=== PATIENT | male | born 1965 | race Two or more races ===

== ENCOUNTER 2022-12-16 11:17 | Inpatient (IN) | payer OTHER ==
[~2022-12-16] VITALS: Ht 157.5 cm; Wt 41.9 kg
[2022-12-16 12:07] LABS: Eosinophils # (auto) 0.1 10 ^3/uL (0-0.8); Hematocrit 37.5 % (41.0-53.0); Hemoglobin 12.2 g/dL (13.5-17.5); Mean Corpuscular Hgb Conc. 32.5 g/dL (32.0-36.0); Neutrophils # (auto) 6.5 10 ^3/uL (1.6-8.6); White Blood Cell 8.4 10^3/uL (4.4-10.8)
[2022-12-16 12:10] LABS: Basophils # (auto) 0.1 10 ^3/uL (0-0.2); Basophils % (auto) 0.7 % (0.0-2.0); Eosinophils % (auto) 1.1 % (0.0-7.0); Lymphocytes # (auto) 1.2 10 ^3/uL (0.4-5.4); Lymphocytes % (auto) 14.8 % (10.0-50.0); Mean Corpuscular Hemoglobin 26.1 pg (28.0-32.0); Mean Corpuscular Volume 80.2 fL (80.0-100.0); Monocytes # (auto) 0.5 10 ^3/uL (0-1.3); Monocytes % (auto) 6.3 % (0.0-12.0); Neutrophils % (auto) 77.1 % (37.0-80.0); Red Blood Cells 4.67 10^6/uL (4.5-5.90); Red Cell Distribution Width 14.9 % (11.8-14.3)
[2022-12-16 12:30] LABS: Alanine Aminotransferase 15 U/L (7-40); Alkaline Phosphatase 113 U/L (46-116); Anion Gap 7.1 (5-15); Aspartate Aminotransferase 11 U/L (13-40); BUN/Creatinine Ratio 27.7 (10.0-20.0); Blood Urea Nitrogen 26 mg/dL (9-23); Calcium 9.1 mg/dL (8.5-10.1); Carbon Dioxide 28.9 mmol/L (20-30); Chloride 105 mmol/L (98-107); Glucose 156 mg/dL (74-106); Potassium 4.3 mmol/L (3.5-5.1); Sodium 141 mmol/L (136-145)
[2022-12-16 12:31] LABS: Albumin 4.1 g/dL (3.2-4.8); Bilirubin, Total 0.4 mg/dL (0.2-1.0); Total Protein 6.6 g/dL (5.7-8.2)
[2022-12-16 12:39] LABS: CRP High Sensitivity 0.96 mg/dL (<1.0)
[2022-12-16 13:48] LABS: Erythrocyte Sedimentation Rate 55 mm/hr (0-20)
[2022-12-16] MEDS ORDERED: IOHEXOL 300 MG/ML 100ML BOTTLE IJ ONE (15:13)
[2022-12-16] MEDS ORDERED: PIPERACILLIN-TAZOB 3.375GM 100 ML IV ONE (15:15)
[2022-12-16] MEDS ORDERED: NITROGLYCERIN 0.4 MG SL TAB SL PRN (16:45)
[2022-12-16] MEDS ORDERED: MORPHINE SULFATE INJ 2 MG/ml SYRG IV PRN (16:45)
[2022-12-16] MEDS ORDERED: ACETAMINOPHEN 325 MG TAB PO PRN (16:45)
[2022-12-16] MEDS ORDERED: HEPARIN DRIP/D5W 100UNITS/ML 250 ML IV SCH (16:45)
[2022-12-16] MEDS ORDERED: HEPARIN SODIUM (PORCINE) 5000 UNITS/ML 1ML VIAL IV ONE (16:45)
[2022-12-16] MEDS ORDERED: HYDROcodone-ACET 5/325MG TAB PO PRN (16:45)
[2022-12-16] MEDS ORDERED: VANCOMYCIN PER PHARMACY 0 MG IV SCH (17:15)
[2022-12-16 17:29] LABS: Basophils # (auto) 0.1 10 ^3/uL (0-0.2); Hemoglobin 12.4 g/dL (13.5-17.5)
[2022-12-16 17:31] LABS: Basophils % (auto) 0.7 % (0.0-2.0); Eosinophils # (auto) 0.2 10 ^3/uL (0-0.8); Eosinophils % (auto) 1.9 % (0.0-7.0); Hematocrit 38.1 % (41.0-53.0); Lymphocytes # (auto) 1.7 10 ^3/uL (0.4-5.4); Lymphocytes % (auto) 19.7 % (10.0-50.0); Mean Corpuscular Hemoglobin 26.1 pg (28.0-32.0); Mean Corpuscular Hgb Conc. 32.6 g/dL (32.0-36.0); Mean Corpuscular Volume 80.1 fL (80.0-100.0); Monocytes # (auto) 0.6 10 ^3/uL (0-1.3); Monocytes % (auto) 7.1 % (0.0-12.0); Neutrophils # (auto) 5.9 10 ^3/uL (1.6-8.6); Neutrophils % (auto) 70.6 % (37.0-80.0); Red Blood Cells 4.75 10^6/uL (4.5-5.90); Red Cell Distribution Width 15.5 % (11.8-14.3); White Blood Cell 8.4 10^3/uL (4.4-10.8)
[2022-12-16 17:35] VITALS: PULSE 84; RESP 14; O2SAT 100
[2022-12-16] MEDS ORDERED: DEXTROSE (50%) 50ML SYRG IV PRN (17:45)
[2022-12-16 17:46] LABS: INR 1.09 (0.9-1.15); Partial Thromboplastin Time 31.9 SEC (24.5-34.5); Prothrombin Time 11.4 sec (9.3-11.8)
[2022-12-16] MEDS ORDERED: VANCOMYCIN 750mg/250ml 250 ML IV SCH (18:00)
[2022-12-16] MEDS: SODIUM CHLORIDE 0.9% 1,000 ML IV SCH (18:10)
[2022-12-16 19:20] VITALS: PULSE 87; RESP 13; O2SAT 99
[2022-12-16] MEDS ORDERED: diphenhdrAMINE HCL 50 MG/1 ML VL IV ONE (20:15)
[2022-12-16] MEDS: ACCU-CHEK COMFORT CURVE STRIP VI SCH (22:34)
[2022-12-16] MEDS: InsuLIN REG 1unit/0.01ml Soln (100units/ml) SC SCH (22:34)
[2022-12-16] MEDS: ASCORBIC ACID 500 MG TAB PO SCH (22:41)
[2022-12-16] MEDS: CEFEPIME 1GM/ 50ML 50 ML IV SCH (22:41)
[2022-12-17 06:19] LABS: Alanine Aminotransferase 10 U/L (7-40); Albumin 3.9 g/dL (3.2-4.8); Alkaline Phosphatase 94 U/L (46-116); Aspartate Aminotransferase 9 U/L (13-40); BUN/Creatinine Ratio 21.1 (10.0-20.0); Bilirubin, Total 0.4 mg/dL (0.2-1.0); Blood Urea Nitrogen 19 mg/dL (9-23); Chloride 110 mmol/L (98-107); Glucose 87 mg/dL (74-106); Potassium 3.9 mmol/L (3.5-5.1); Sodium 142 mmol/L (136-145); Total Protein 6.7 g/dL (5.7-8.2)
[2022-12-17] MEDS: InsuLIN REG 1unit/0.01ml Soln (100units/ml) SC SCH ×4 (07:00→21:22)
[2022-12-17] MEDS: CEFEPIME 1GM/ 50ML 50 ML IV SCH ×3 (07:07→21:16)
[2022-12-17] MEDS: ACCU-CHEK COMFORT CURVE STRIP VI SCH ×4 (07:15→22:00)
[2022-12-17 09:00] VITALS: BP 98/64; PULSE 101; RESP 17; TEMP 97.8; O2SAT 95
[2022-12-17] MEDS: MULTIPLE VITAMIN TAB PO SCH (09:42)
[2022-12-17] MEDS: ZINC SULFATE 220mg CAP or TAB PO SCH (09:42)
[2022-12-17] MEDS: ASCORBIC ACID 500 MG TAB PO SCH ×2 (09:42→21:16)
[2022-12-17] MEDS: SODIUM CHLORIDE 0.9% 1,000 ML IV SCH (09:43)
[2022-12-17 10:00] VITALS: O2SAT 95
[2022-12-17] MEDS ORDERED: ENOXAPARIN SOD 40 MG/0.4 ML SYRINGE SC SCH (10:00)
[2022-12-17 13:04] VITALS: BP 125/75; PULSE 101; RESP 16; TEMP 97.9; O2SAT 98
[2022-12-17 17:00] VITALS: BP 120/78; PULSE 71; RESP 18; TEMP 98; O2SAT 95
[2022-12-17 20:00] VITALS: PULSE 87; PULSE 96; RESP 18; O2SAT 96
[2022-12-17 22:09] VITALS: BP 105/60; PULSE 89; RESP 18; TEMP 98; O2SAT 96
[2022-12-18] VITALS (7 sets, daily range): BP systolic 93–112; BP diastolic 58–79; PULSE 84–95; RESP 16–20; TEMP 97.6–98.7; O2SAT 94–98
[2022-12-18] MEDS: CEFEPIME 1GM/ 50ML 50 ML IV SCH (05:35)
[2022-12-18] MEDS: InsuLIN REG 1unit/0.01ml Soln (100units/ml) SC SCH ×4 (06:28→22:00)
[2022-12-18] MEDS: ACCU-CHEK COMFORT CURVE STRIP VI SCH ×4 (06:28→22:06)
[2022-12-18 06:53] LABS: Basophils # (auto) 0.1 10 ^3/uL (0-0.2); Eosinophils # (auto) 0.3 10 ^3/uL (0-0.8); Hemoglobin 11.4 g/dL (13.5-17.5); Lymphocytes # (auto) 0.8 10 ^3/uL (0.4-5.4); Monocytes # (auto) 0.5 10 ^3/uL (0-1.3); White Blood Cell 5.6 10^3/uL (4.4-10.8)
[2022-12-18 06:55] LABS: Basophils % (auto) 0.9 % (0.0-2.0); Eosinophils % (auto) 4.9 % (0.0-7.0); Hematocrit 33.9 % (41.0-53.0); Lymphocytes % (auto) 14.7 % (10.0-50.0); Mean Corpuscular Hemoglobin 26.9 pg (28.0-32.0); Mean Corpuscular Hgb Conc. 33.7 g/dL (32.0-36.0); Mean Corpuscular Volume 79.8 fL (80.0-100.0); Monocytes % (auto) 8.7 % (0.0-12.0); Neutrophils % (auto) 70.8 % (37.0-80.0); Red Blood Cells 4.25 10^6/uL (4.5-5.90); Red Cell Distribution Width 14.7 % (11.8-14.3)
[2022-12-18 06:56] LABS: Chloride 109 mmol/L (98-107); Potassium 4.4 mmol/L (3.5-5.1); Sodium 140 mmol/L (136-145)
[2022-12-18 07:02] LABS: BUN/Creatinine Ratio 18.9 (10.0-20.0); Blood Urea Nitrogen 17 mg/dL (9-23); Glucose 87 mg/dL (74-106)
[2022-12-18 07:33] LABS: Anion Gap 6 (5-15); Carbon Dioxide 25 mmol/L (20-30)
[2022-12-18] MEDS: MULTIPLE VITAMIN TAB PO SCH (09:34)
[2022-12-18] MEDS: ZINC SULFATE 220mg CAP or TAB PO SCH (09:34)
[2022-12-18] MEDS: ASCORBIC ACID 500 MG TAB PO SCH ×2 (09:34→22:06)
[2022-12-18] MEDS ORDERED: PIPERACILLIN-TAZOB 3.375GM 100 ML IV SCH (14:00)
[2022-12-19] VITALS (10 sets, daily range): BP systolic 95–138; BP diastolic 57–87; PULSE 84–100; RESP 12–20; TEMP 97.8–98.3; O2SAT 90–99
[2022-12-19 06:21] LABS: Chloride 107 mmol/L (98-107); Potassium 4.1 mmol/L (3.5-5.1); Sodium 139 mmol/L (136-145)
[2022-12-19 06:22] LABS: Anion Gap 6 (5-15); Calcium 9.2 mg/dL (8.5-10.1); Carbon Dioxide 26 mmol/L (20-30)
[2022-12-19 06:28] LABS: BUN/Creatinine Ratio 19.8 (10.0-20.0); Blood Urea Nitrogen 20 mg/dL (9-23)
[2022-12-19] MEDS: ACCU-CHEK COMFORT CURVE STRIP VI SCH ×4 (06:28→21:42)
[2022-12-19] MEDS: InsuLIN REG 1unit/0.01ml Soln (100units/ml) SC SCH ×4 (06:28→21:46)
[2022-12-19 06:42] LABS: Basophils # (auto) 0.1 10 ^3/uL (0-0.2); Eosinophils # (auto) 0.3 10 ^3/uL (0-0.8); Eosinophils % (auto) 4.8 % (0.0-7.0); Hemoglobin 11.8 g/dL (13.5-17.5); Mean Corpuscular Hemoglobin 26.4 pg (28.0-32.0); Monocytes # (auto) 0.7 10 ^3/uL (0-1.3); Nucleated Red Blood Cells % 0.1 %; White Blood Cell 7.1 10^3/uL (4.4-10.8)
[2022-12-19 06:44] LABS: Basophils % (auto) 0.8 % (0.0-2.0); Hematocrit 35.5 % (41.0-53.0); Lymphocytes # (auto) 1.1 10 ^3/uL (0.4-5.4); Lymphocytes % (auto) 16.2 % (10.0-50.0); Mean Corpuscular Hgb Conc. 33.2 g/dL (32.0-36.0); Mean Corpuscular Volume 79.7 fL (80.0-100.0); Monocytes % (auto) 10.4 % (0.0-12.0); Neutrophils # (auto) 4.8 10 ^3/uL (1.6-8.6); Neutrophils % (auto) 67.8 % (37.0-80.0); Red Blood Cells 4.45 10^6/uL (4.5-5.90); Red Cell Distribution Width 14.9 % (11.8-14.3)
[2022-12-19 07:01] LABS: Glucose 98 mg/dL (74-106)
[2022-12-19] MEDS: ASCORBIC ACID 500 MG TAB PO SCH ×2 (10:00→21:39)
[2022-12-19] MEDS: MULTIPLE VITAMIN TAB PO SCH (10:00)
[2022-12-19] MEDS: ZINC SULFATE 220mg CAP or TAB PO SCH (10:00)
[2022-12-19] MEDS ORDERED: LIDOCAINE 2%HCL (LOCAL ANESTH.) INJ 20ML MDV ONE (13:09)
[2022-12-19] MEDS ORDERED: IODIXANOL 320MG/ML 100ML BTL IV ONE (13:09)
[2022-12-19] MEDS ORDERED: fentaNYL CITRATE 100 MCG/2 ML VL ONE (13:30)
[2022-12-19] MEDS ORDERED: MIDAZOLAM HCL 2MG/2ML 2ml VIAL (1mg/ml) ONE (13:31)
[2022-12-19] MEDS ORDERED: ANGIOMAX 250 MG VIAL IV ONE (13:47)
[2022-12-19] MEDS ORDERED: SODIUM CHL 0.9% 0 ML ONE (13:47)
[2022-12-20] VITALS (8 sets, daily range): BP systolic 124–144; BP diastolic 74–81; PULSE 72–99; RESP 16–22; TEMP 97.6–98.8; O2SAT 98–100
[2022-12-20] MEDS: ACCU-CHEK COMFORT CURVE STRIP VI SCH ×4 (06:18→21:56)
[2022-12-20] MEDS: InsuLIN REG 1unit/0.01ml Soln (100units/ml) SC SCH ×4 (06:19→21:56)
[2022-12-20 06:43] LABS: Basophils # (auto) 0 10 ^3/uL (0-0.2); Hemoglobin 12.1 g/dL (13.5-17.5); Mean Corpuscular Volume 80.7 fL (80.0-100.0); Monocytes # (auto) 0.6 10 ^3/uL (0-1.3); Red Cell Distribution Width 15.3 % (11.8-14.3)
[2022-12-20 06:46] LABS: Basophils % (auto) 0.7 % (0.0-2.0); Eosinophils # (auto) 0.2 10 ^3/uL (0-0.8); Eosinophils % (auto) 2.3 % (0.0-7.0); Hematocrit 37.6 % (41.0-53.0); Lymphocytes # (auto) 1.4 10 ^3/uL (0.4-5.4); Lymphocytes % (auto) 19.8 % (10.0-50.0); Mean Corpuscular Hemoglobin 25.9 pg (28.0-32.0); Mean Corpuscular Hgb Conc. 32.1 g/dL (32.0-36.0); Monocytes % (auto) 8.6 % (0.0-12.0); Neutrophils # (auto) 4.9 10 ^3/uL (1.6-8.6); Neutrophils % (auto) 68.6 % (37.0-80.0); Nucleated Red Blood Cells % 0.1 %; Red Blood Cells 4.66 10^6/uL (4.5-5.90); White Blood Cell 7.2 10^3/uL (4.4-10.8)
[2022-12-20 07:03] LABS: Chloride 108 mmol/L (98-107); Potassium 4.1 mmol/L (3.5-5.1); Sodium 142 mmol/L (136-145)
[2022-12-20 07:04] LABS: Calcium 9.3 mg/dL (8.5-10.1)
[2022-12-20 07:09] LABS: Glucose 75 mg/dL (74-106)
[2022-12-20 07:25] LABS: Anion Gap 9 (5-15); BUN/Creatinine Ratio 25.3 (10.0-20.0); Blood Urea Nitrogen 24 mg/dL (9-23); Carbon Dioxide 25 mmol/L (20-30)
[2022-12-20] MEDS: MULTIPLE VITAMIN TAB PO SCH (08:42)
[2022-12-20] MEDS: ZINC SULFATE 220mg CAP or TAB PO SCH (08:42)
[2022-12-20] MEDS: ASCORBIC ACID 500 MG TAB PO SCH ×2 (08:42→21:54)
[2022-12-20 14:26] LABS: Triglycerides 67 mg/dL (< 150)
[2022-12-20 14:27] LABS: LDL Cholesterol 54 mg/dL (< 100)
[2022-12-20 14:28] LABS: Cholesterol 114 mg/dL (< 200); HDL Cholesterol 39 mg/dL (40-59)
[2022-12-21] VITALS (8 sets, daily range): BP systolic 100–128; BP diastolic 68–78; PULSE 83–98; RESP 14–18; TEMP 97.5–98.4; O2SAT 98–100
[2022-12-21] MEDS: ACCU-CHEK COMFORT CURVE STRIP VI SCH ×4 (06:01→21:28)
[2022-12-21] MEDS: InsuLIN REG 1unit/0.01ml Soln (100units/ml) SC SCH ×4 (06:01→21:28)
[2022-12-21 06:23] LABS: Eosinophils # (auto) 0.1 10 ^3/uL (0-0.8); Lymphocytes # (auto) 1.6 10 ^3/uL (0.4-5.4); Monocytes # (auto) 0.6 10 ^3/uL (0-1.3); Neutrophils # (auto) 6.2 10 ^3/uL (1.6-8.6)
[2022-12-21 06:27] LABS: Basophils # (auto) 0 10 ^3/uL (0-0.2); Basophils % (auto) 0.5 % (0.0-2.0); Eosinophils % (auto) 0.9 % (0.0-7.0); Hematocrit 37.5 % (41.0-53.0); Lymphocytes % (auto) 18.9 % (10.0-50.0); Mean Corpuscular Hemoglobin 26.1 pg (28.0-32.0); Mean Corpuscular Hgb Conc. 32.2 g/dL (32.0-36.0); Mean Corpuscular Volume 81.2 fL (80.0-100.0); Monocytes % (auto) 6.5 % (0.0-12.0); Neutrophils % (auto) 73.2 % (37.0-80.0); Nucleated Red Blood Cells % 0.1 %; Red Blood Cells 4.62 10^6/uL (4.5-5.90); Red Cell Distribution Width 15.2 % (11.8-14.3); White Blood Cell 8.5 10^3/uL (4.4-10.8)
[2022-12-21 06:28] LABS: Anion Gap 6 (5-15); Carbon Dioxide 27 mmol/L (20-30); Chloride 106 mmol/L (98-107); Potassium 4.8 mmol/L (3.5-5.1); Sodium 139 mmol/L (136-145)
[2022-12-21 06:29] LABS: Calcium 9.2 mg/dL (8.7-10.4)
[2022-12-21 06:33] LABS: Glucose 90 mg/dL (74-106)
[2022-12-21 06:34] LABS: BUN/Creatinine Ratio 18.9 (10.0-20.0); Blood Urea Nitrogen 20 mg/dL (9-23)
[2022-12-21] MEDS: MULTIPLE VITAMIN TAB PO SCH (09:10)
[2022-12-21] MEDS: ASCORBIC ACID 500 MG TAB PO SCH ×2 (09:10→21:22)
[2022-12-21] MEDS: ZINC SULFATE 220mg CAP or TAB PO SCH (09:10)
[2022-12-22] VITALS (7 sets, daily range): BP systolic 109–139; BP diastolic 69–78; PULSE 84–91; RESP 16–20; TEMP 97.8–98.8; O2SAT 95–100
[2022-12-22] MEDS: ACCU-CHEK COMFORT CURVE STRIP VI SCH ×4 (06:12→21:16)
[2022-12-22] MEDS: InsuLIN REG 1unit/0.01ml Soln (100units/ml) SC SCH ×4 (06:13→21:17)
[2022-12-22 06:18] LABS: Basophils # (auto) 0 10 ^3/uL (0-0.2); Eosinophils # (auto) 0 10 ^3/uL (0-0.8); Hemoglobin 11.9 g/dL (13.5-17.5); White Blood Cell 8.7 10^3/uL (4.4-10.8)
[2022-12-22 06:21] LABS: Basophils % (auto) 0.6 % (0.0-2.0); Eosinophils % (auto) 0.3 % (0.0-7.0); Hematocrit 36.1 % (41.0-53.0); Lymphocytes # (auto) 1.3 10 ^3/uL (0.4-5.4); Lymphocytes % (auto) 15.2 % (10.0-50.0); Mean Corpuscular Hemoglobin 26.2 pg (28.0-32.0); Mean Corpuscular Volume 79.5 fL (80.0-100.0); Monocytes # (auto) 0.4 10 ^3/uL (0-1.3); Monocytes % (auto) 5.1 % (0.0-12.0); Neutrophils # (auto) 6.9 10 ^3/uL (1.6-8.6); Neutrophils % (auto) 78.8 % (37.0-80.0); Red Blood Cells 4.54 10^6/uL (4.5-5.90); Red Cell Distribution Width 14.7 % (11.8-14.3)
[2022-12-22 06:35] LABS: Anion Gap 8 (5-15); Carbon Dioxide 26 mmol/L (20-30); Chloride 105 mmol/L (98-107); Potassium 4.2 mmol/L (3.5-5.1); Sodium 139 mmol/L (136-145)
[2022-12-22 06:36] LABS: Calcium 9.2 mg/dL (8.7-10.4)
[2022-12-22 06:41] LABS: BUN/Creatinine Ratio 19.6 (10.0-20.0); Blood Urea Nitrogen 18 mg/dL (9-23); Glucose 89 mg/dL (74-106)
[2022-12-22 09:56] LABS: % Iron Saturation 11.4 % (20-55)
[2022-12-22] MEDS: MULTIPLE VITAMIN TAB PO SCH (12:22)
[2022-12-22] MEDS: ZINC SULFATE 220mg CAP or TAB PO SCH (12:22)
[2022-12-22] MEDS: ASCORBIC ACID 500 MG TAB PO SCH ×2 (12:22→21:17)
[2022-12-23] VITALS (7 sets, daily range): BP systolic 98–126; BP diastolic 62–77; PULSE 86–109; RESP 15–19; TEMP 97.7–99.4; O2SAT 97–100
[2022-12-23] MEDS: ACCU-CHEK COMFORT CURVE STRIP VI SCH ×4 (05:51→21:36)
[2022-12-23] MEDS: InsuLIN REG 1unit/0.01ml Soln (100units/ml) SC SCH ×4 (05:51→21:39)
[2022-12-23 08:33] LABS: Basophils # (auto) 0.1 10 ^3/uL (0-0.2); Eosinophils # (auto) 0.2 10 ^3/uL (0-0.8); Hemoglobin 12.5 g/dL (13.5-17.5); Mean Corpuscular Hemoglobin 26.1 pg (28.0-32.0); Mean Corpuscular Hgb Conc. 32.5 g/dL (32.0-36.0); Neutrophils # (auto) 8.9 10 ^3/uL (1.6-8.6); White Blood Cell 11.4 10^3/uL (4.4-10.8)
[2022-12-23 08:34] LABS: Basophils % (auto) 0.6 % (0.0-2.0); Eosinophils % (auto) 1.5 % (0.0-7.0); Hematocrit 38.5 % (41.0-53.0); Lymphocytes # (auto) 1.6 10 ^3/uL (0.4-5.4); Lymphocytes % (auto) 14.3 % (10.0-50.0); Mean Corpuscular Volume 80.4 fL (80.0-100.0); Monocytes # (auto) 0.7 10 ^3/uL (0-1.3); Monocytes % (auto) 6.1 % (0.0-12.0); Neutrophils % (auto) 77.5 % (37.0-80.0); Red Cell Distribution Width 15.2 % (11.8-14.3)
[2022-12-23 08:38] LABS: Carbon Dioxide 27 mmol/L (20-30)
[2022-12-23 08:39] LABS: Calcium 9.3 mg/dL (8.5-10.1)
[2022-12-23 08:43] LABS: Glucose 113 mg/dL (74-106)
[2022-12-23 08:44] LABS: BUN/Creatinine Ratio 17.9 (10.0-20.0); Blood Urea Nitrogen 17 mg/dL (9-23)
[2022-12-23 09:06] LABS: Anion Gap 7 (5-15); Chloride 106 mmol/L (98-107); Potassium 3.8 mmol/L (3.5-5.1); Sodium 140 mmol/L (136-145)
[2022-12-23] MEDS: ZINC SULFATE 220mg CAP or TAB PO SCH (09:18)
[2022-12-23] MEDS: ASCORBIC ACID 500 MG TAB PO SCH ×2 (09:18→21:39)
[2022-12-23] MEDS: MULTIPLE VITAMIN TAB PO SCH (09:18)
[2022-12-24 05:00] VITALS: BP 111/72; PULSE 97; RESP 18; TEMP 98.6; O2SAT 97
[2022-12-24 05:55] LABS: Basophils # (auto) 0 10 ^3/uL (0-0.2); Hemoglobin 11.6 g/dL (13.5-17.5); Monocytes # (auto) 0.5 10 ^3/uL (0-1.3); Nucleated Red Blood Cells % 0.1 %
[2022-12-24 05:58] LABS: Basophils % (auto) 0.6 % (0.0-2.0); Eosinophils # (auto) 0.2 10 ^3/uL (0-0.8); Eosinophils % (auto) 2.4 % (0.0-7.0); Hematocrit 35.1 % (41.0-53.0); Lymphocytes # (auto) 2.1 10 ^3/uL (0.4-5.4); Lymphocytes % (auto) 30.7 % (10.0-50.0); Mean Corpuscular Hemoglobin 26.2 pg (28.0-32.0); Mean Corpuscular Volume 79.5 fL (80.0-100.0); Monocytes % (auto) 7.7 % (0.0-12.0); Neutrophils % (auto) 58.6 % (37.0-80.0); Red Blood Cells 4.41 10^6/uL (4.5-5.90); Red Cell Distribution Width 14.8 % (11.8-14.3); White Blood Cell 6.9 10^3/uL (4.4-10.8)
[2022-12-24 06:05] LABS: Calcium 9.1 mg/dL (8.7-10.4); Chloride 106 mmol/L (98-107); Potassium 3.8 mmol/L (3.5-5.1); Sodium 138 mmol/L (136-145)
[2022-12-24 06:06] LABS: Anion Gap 5 (5-15); Carbon Dioxide 27 mmol/L (20-30)
[2022-12-24 06:11] LABS: BUN/Creatinine Ratio 18.3 (10.0-20.0); Blood Urea Nitrogen 19 mg/dL (9-23); Glucose 93 mg/dL (74-106)
[2022-12-24] MEDS: ACCU-CHEK COMFORT CURVE STRIP VI SCH ×4 (06:45→22:05)
[2022-12-24] MEDS: InsuLIN REG 1unit/0.01ml Soln (100units/ml) SC SCH ×4 (06:45→22:00)
[2022-12-24 08:00] VITALS: PULSE 92
[2022-12-24 10:20] VITALS: BP 113/74; PULSE 94; RESP 17; TEMP 98.3; O2SAT 97
[2022-12-24] MEDS: ZINC SULFATE 220mg CAP or TAB PO SCH (10:20)
[2022-12-24] MEDS: MULTIPLE VITAMIN TAB PO SCH (10:20)
[2022-12-24] MEDS: ASCORBIC ACID 500 MG TAB PO SCH ×2 (10:20→22:05)
[2022-12-24 13:22] VITALS: BP 126/74; PULSE 92; RESP 17; TEMP 98.3; O2SAT 97
[2022-12-24 20:00] VITALS: PULSE 91; PULSE 96; RESP 17; O2SAT 100
[2022-12-24 22:00] VITALS: BP 101/60; PULSE 90; RESP 17; TEMP 98.2; O2SAT 98
[2022-12-25] VITALS (7 sets, daily range): BP systolic 103–117; BP diastolic 62–71; PULSE 72–93; RESP 17–19; TEMP 97.3–98.8; O2SAT 94–98
[2022-12-25 06:04] LABS: Eosinophils # (auto) 0.2 10 ^3/uL (0-0.8); Monocytes # (auto) 0.6 10 ^3/uL (0-1.3); Neutrophils # (auto) 4.4 10 ^3/uL (1.6-8.6); White Blood Cell 7.4 10^3/uL (4.4-10.8)
[2022-12-25 06:06] LABS: Basophils # (auto) 0.1 10 ^3/uL (0-0.2); Basophils % (auto) 0.7 % (0.0-2.0); Eosinophils % (auto) 3.1 % (0.0-7.0); Hematocrit 34.3 % (41.0-53.0); Hemoglobin 11.2 g/dL (13.5-17.5); Lymphocytes # (auto) 2.1 10 ^3/uL (0.4-5.4); Lymphocytes % (auto) 28.4 % (10.0-50.0); Mean Corpuscular Hgb Conc. 32.6 g/dL (32.0-36.0); Mean Corpuscular Volume 79.9 fL (80.0-100.0); Monocytes % (auto) 8.1 % (0.0-12.0); Neutrophils % (auto) 59.7 % (37.0-80.0); Red Blood Cells 4.29 10^6/uL (4.5-5.90); Red Cell Distribution Width 14.6 % (11.8-14.3)
[2022-12-25 06:18] LABS: Anion Gap 6 (5-15); Calcium 9.1 mg/dL (8.7-10.4); Carbon Dioxide 26 mmol/L (20-30); Chloride 108 mmol/L (98-107); Potassium 3.8 mmol/L (3.5-5.1); Sodium 140 mmol/L (136-145)
[2022-12-25 06:23] LABS: BUN/Creatinine Ratio 19.4 (10.0-20.0); Blood Urea Nitrogen 18 mg/dL (9-23); Glucose 94 mg/dL (74-106)
[2022-12-25] MEDS: ACCU-CHEK COMFORT CURVE STRIP VI SCH ×4 (06:42→21:28)
[2022-12-25] MEDS: InsuLIN REG 1unit/0.01ml Soln (100units/ml) SC SCH ×4 (06:43→22:16)
[2022-12-25] MEDS: ZINC SULFATE 220mg CAP or TAB PO SCH (10:08)
[2022-12-25] MEDS: ASCORBIC ACID 500 MG TAB PO SCH ×2 (10:08→21:28)
[2022-12-25] MEDS: MULTIPLE VITAMIN TAB PO SCH (10:08)
[2022-12-25] MEDS: HYDROcodone-ACET 5/325MG TAB PO PRN (21:28)
[2022-12-26] VITALS (8 sets, daily range): BP systolic 101–148; BP diastolic 61–75; PULSE 79–91; RESP 14–20; TEMP 97.7–98.2; O2SAT 94–98
[2022-12-26] MEDS: ACCU-CHEK COMFORT CURVE STRIP VI SCH ×4 (06:06→22:00)
[2022-12-26] MEDS: InsuLIN REG 1unit/0.01ml Soln (100units/ml) SC SCH ×4 (06:09→22:00)
[2022-12-26] MEDS: ZINC SULFATE 220mg CAP or TAB PO SCH (11:00)
[2022-12-26] MEDS: MULTIPLE VITAMIN TAB PO SCH (11:00)
[2022-12-26] MEDS: ASCORBIC ACID 500 MG TAB PO SCH ×2 (11:00→22:00)
[2022-12-26] MEDS: HYDROcodone-ACET 5/325MG TAB PO PRN ×2 (14:09→20:56)
[2022-12-27] MEDS: ACCU-CHEK COMFORT CURVE STRIP VI SCH ×4 (07:00→22:13)
[2022-12-27] MEDS: InsuLIN REG 1unit/0.01ml Soln (100units/ml) SC SCH ×4 (07:00→22:18)
[2022-12-27 07:30] VITALS: PULSE 82; TEMP 36.8
[2022-12-27 08:00] VITALS: BP 110/70; PULSE 88; RESP 22; TEMP 98.4; O2SAT 95
[2022-12-27] MEDS: MULTIPLE VITAMIN TAB PO SCH (10:41)
[2022-12-27] MEDS: ASCORBIC ACID 500 MG TAB PO SCH ×2 (10:41→22:13)
[2022-12-27] MEDS: HYDROcodone-ACET 5/325MG TAB PO PRN ×2 (10:41→22:13)
[2022-12-27] MEDS: ZINC SULFATE 220mg CAP or TAB PO SCH (10:43)
[2022-12-27 20:00] VITALS: BP 131/74; PULSE 89; PULSE 96; RESP 16; TEMP 98.6; O2SAT 95
[2022-12-27 22:00] VITALS: BP 131/74; PULSE 89; RESP 16; TEMP 98.6; O2SAT 98
[2022-12-28] VITALS (8 sets, daily range): BP systolic 104–120; BP diastolic 65–68; PULSE 79–108; RESP 16–22; TEMP 97.6–98.4; O2SAT 97–99
[2022-12-28 06:01] LABS: Anion Gap 5 (5-15); Carbon Dioxide 30 mmol/L (20-30); Chloride 106 mmol/L (98-107); Potassium 4.5 mmol/L (3.5-5.1); Sodium 141 mmol/L (136-145)
[2022-12-28 06:03] LABS: Calcium 9.4 mg/dL (8.7-10.4)
[2022-12-28 06:07] LABS: BUN/Creatinine Ratio 19.6 (10.0-20.0); Blood Urea Nitrogen 20 mg/dL (9-23); Glucose 79 mg/dL (74-106)
[2022-12-28] MEDS: HYDROcodone-ACET 5/325MG TAB PO PRN ×2 (06:30→19:51)
[2022-12-28] MEDS: InsuLIN REG 1unit/0.01ml Soln (100units/ml) SC SCH ×4 (06:30→22:19)
[2022-12-28] MEDS: ACCU-CHEK COMFORT CURVE STRIP VI SCH ×4 (06:30→22:12)
[2022-12-28] MEDS: MULTIPLE VITAMIN TAB PO SCH (09:24)
[2022-12-28] MEDS: ZINC SULFATE 220mg CAP or TAB PO SCH (09:24)
[2022-12-28] MEDS: ASCORBIC ACID 500 MG TAB PO SCH ×2 (09:24→22:12)
[2022-12-29] VITALS (7 sets, daily range): BP systolic 119–152; BP diastolic 67–82; PULSE 58–90; RESP 16–20; TEMP 97.5–98.7; O2SAT 96–98
[2022-12-29] MEDS: ACCU-CHEK COMFORT CURVE STRIP VI SCH ×4 (06:20→21:56)
[2022-12-29] MEDS: InsuLIN REG 1unit/0.01ml Soln (100units/ml) SC SCH ×4 (06:21→22:03)
[2022-12-29] MEDS: ZINC SULFATE 220mg CAP or TAB PO SCH (09:44)
[2022-12-29] MEDS: MULTIPLE VITAMIN TAB PO SCH (09:44)
[2022-12-29] MEDS: ASCORBIC ACID 500 MG TAB PO SCH ×2 (09:44→21:56)
[2022-12-29] MEDS: HYDROcodone-ACET 5/325MG TAB PO PRN ×2 (09:46→21:59)
[2022-12-29 20:06] LABS: Basophils # (auto) 0 10 ^3/uL (0-0.2); Basophils % (auto) 0.6 % (0.0-2.0); Eosinophils # (auto) 0.2 10 ^3/uL (0-0.8); Eosinophils % (auto) 3.2 % (0.0-7.0); Monocytes # (auto) 0.5 10 ^3/uL (0-1.3)
[2022-12-29 20:08] LABS: Hemoglobin 10.4 g/dL (13.5-17.5); Lymphocytes # (auto) 1.9 10 ^3/uL (0.4-5.4); Lymphocytes % (auto) 25.4 % (10.0-50.0); Mean Corpuscular Hgb Conc. 32.4 g/dL (32.0-36.0); Mean Corpuscular Volume 80.1 fL (80.0-100.0); Monocytes % (auto) 6.8 % (0.0-12.0); Neutrophils # (auto) 4.7 10 ^3/uL (1.6-8.6); Red Blood Cells 3.99 10^6/uL (4.5-5.90); Red Cell Distribution Width 15.3 % (11.8-14.3); White Blood Cell 7.4 10^3/uL (4.4-10.8)
[2022-12-29 20:22] LABS: Alanine Aminotransferase 13 U/L (7-40); Albumin 3.9 g/dL (3.2-4.8); Alkaline Phosphatase 84 U/L (46-116); Anion Gap 5 (5-15); Aspartate Aminotransferase 11 U/L (13-40); BUN/Creatinine Ratio 17.9 (10.0-20.0); Blood Urea Nitrogen 20 mg/dL (9-23); Carbon Dioxide 30 mmol/L (20-30); Chloride 103 mmol/L (98-107); Potassium 4.3 mmol/L (3.5-5.1); Sodium 138 mmol/L (136-145)
[2022-12-29 20:23] LABS: Bilirubin, Total 0.4 mg/dL (0.2-1.0); Total Protein 6.5 g/dL (5.7-8.2)
[2022-12-29 20:27] LABS: INR 1.1 (0.9-1.15); Partial Thromboplastin Time 32.2 SEC (24.5-34.5); Prothrombin Time 11.5 sec (9.3-11.8)
[2022-12-29 21:08] LABS: Glucose 218 mg/dL (74-106)
[2022-12-30] VITALS (7 sets, daily range): BP systolic 113–169; BP diastolic 72–93; PULSE 87–115; RESP 16–19; TEMP 97.5–98.4; O2SAT 96–99
[2022-12-30] MEDS: InsuLIN REG 1unit/0.01ml Soln (100units/ml) SC SCH ×4 (05:52→21:55)
[2022-12-30] MEDS: ACCU-CHEK COMFORT CURVE STRIP VI SCH ×4 (05:52→21:46)
[2022-12-30 05:58] LABS: Chloride 106 mmol/L (98-107); Potassium 4.4 mmol/L (3.5-5.1); Sodium 140 mmol/L (136-145)
[2022-12-30 05:59] LABS: Anion Gap 4 (5-15); Calcium 9.3 mg/dL (8.7-10.4); Carbon Dioxide 30 mmol/L (20-30)
[2022-12-30 06:04] LABS: BUN/Creatinine Ratio 17.5 (10.0-20.0); Blood Urea Nitrogen 18 mg/dL (9-23); Glucose 98 mg/dL (74-106)
[2022-12-30] MEDS ORDERED: SUCCINYLCHOLINE CHLORIDE 20 MG/ML 10ML VIAL IV ONE (07:07)
[2022-12-30] MEDS ORDERED: ceFAZolin 1GM/50ML 100 ML IV ONE (07:07)
[2022-12-30] MEDS ORDERED: DOXAPRAM HCL 20 MG/ML 20ML VIAL INJ IV ONE (07:08)
[2022-12-30] MEDS ORDERED: BUPIVACAINE 0.5% P/F INJ 10 ML VIAL ONE (07:09)
[2022-12-30] MEDS ORDERED: fentaNYL CITRATE 100 MCG/2 ML VL ONE (07:16)
[2022-12-30] MEDS ORDERED: EPINEPHrine HCL 1 MG/1 ML AMP ONE (07:17)
[2022-12-30] MEDS ORDERED: ONDANSETRON HCL 4 MG/2 ML VIAL ONE (07:17)
[2022-12-30] MEDS ORDERED: BUPIVACAINE/DEXTROSE MPF 0.75% 2 ML AMP IT ONE (07:17)
[2022-12-30] MEDS ORDERED: SODIUM CHLORIDE LOCK 10 ML ONE (07:17)
[2022-12-30] MEDS ORDERED: KETAMINE HCL 10 ML ONE (07:17)
[2022-12-30] MEDS ORDERED: PROPOFOL 10 MG/ML 20 ML IV ONE (07:17)
[2022-12-30] MEDS ORDERED: DexAMETHasone SOD PHOS 10MG/1ML VIAL INJ ONE (07:17)
[2022-12-30] MEDS ORDERED: MIDAZOLAM HCL 2MG/2ML 2ml VIAL (1mg/ml) ONE (07:17)
[2022-12-30] MEDS ORDERED: HYDROmorphone HCL 2 MG/ML VL/or syr IV PRN ×2 (07:30)
[2022-12-30] MEDS ORDERED: METOCLOPRAMIDE HCL 5MG/ml INJ 2ml VIAL IV PRN (07:30)
[2022-12-30] MEDS ORDERED: ACCU-CHEK COMFORT CURVE STRIP VI ONE (07:30)
[2022-12-30] MEDS ORDERED: MORPHINE SULFATE INJ 2 MG/ml SYRG IV PRN (07:30)
[2022-12-30] MEDS: ASCORBIC ACID 500 MG TAB PO SCH ×2 (09:49→21:46)
[2022-12-30] MEDS: MULTIPLE VITAMIN TAB PO SCH (09:49)
[2022-12-30] MEDS: ZINC SULFATE 220mg CAP or TAB PO SCH (09:49)
[2022-12-30] MEDS: HYDROcodone-ACET 5/325MG TAB PO PRN (12:55)
[2022-12-30] MEDS: HYDROmorphone HCL 2 MG/ML VL/or syr IV PRN ×2 (17:38→21:57)
[2022-12-31] VITALS (7 sets, daily range): BP systolic 110–160; BP diastolic 73–93; PULSE 99–116; RESP 16–97; TEMP 97.7–99.8; O2SAT 93–98
[2022-12-31] MEDS: ACCU-CHEK COMFORT CURVE STRIP VI SCH ×4 (06:05→21:22)
[2022-12-31] MEDS: InsuLIN REG 1unit/0.01ml Soln (100units/ml) SC SCH ×4 (06:09→21:24)
[2022-12-31 06:11] LABS: Basophils # (auto) 0 10 ^3/uL (0-0.2); Basophils % (auto) 0.3 % (0.0-2.0); Eosinophils # (auto) 0 10 ^3/uL (0-0.8); Eosinophils % (auto) 0.1 % (0.0-7.0); Hematocrit 35.5 % (41.0-53.0); Hemoglobin 11.4 g/dL (13.5-17.5); Lymphocytes # (auto) 1.1 10 ^3/uL (0.4-5.4); Lymphocytes % (auto) 9.2 % (10.0-50.0); Monocytes # (auto) 0.8 10 ^3/uL (0-1.3); Neutrophils # (auto) 10.3 10 ^3/uL (1.6-8.6); Red Blood Cells 4.44 10^6/uL (4.5-5.90); White Blood Cell 12.3 10^3/uL (4.4-10.8)
[2022-12-31] MEDS: HYDROmorphone HCL 2 MG/ML VL/or syr IV PRN ×3 (06:11→18:37)
[2022-12-31 06:13] LABS: Mean Corpuscular Hemoglobin 25.7 pg (28.0-32.0); Mean Corpuscular Hgb Conc. 32.2 g/dL (32.0-36.0); Monocytes % (auto) 6.9 % (0.0-12.0); Neutrophils % (auto) 83.5 % (37.0-80.0); Red Cell Distribution Width 15.1 % (11.8-14.3)
[2022-12-31 06:14] LABS: Anion Gap 8 (5-15); Carbon Dioxide 29 mmol/L (20-30); Chloride 100 mmol/L (98-107); Potassium 3.9 mmol/L (3.5-5.1); Sodium 137 mmol/L (136-145)
[2022-12-31 06:16] LABS: Calcium 9.6 mg/dL (8.7-10.4)
[2022-12-31 06:20] LABS: BUN/Creatinine Ratio 15.8 (10.0-20.0); Blood Urea Nitrogen 16 mg/dL (9-23)
[2022-12-31 06:21] LABS: Glucose 209 mg/dL (74-106)
[2022-12-31] MEDS: ZINC SULFATE 220mg CAP or TAB PO SCH (10:38)
[2022-12-31] MEDS: ASCORBIC ACID 500 MG TAB PO SCH ×2 (10:38→21:18)
[2022-12-31] MEDS: MULTIPLE VITAMIN TAB PO SCH (10:39)
[2023-01-01] VITALS (7 sets, daily range): BP systolic 110–153; BP diastolic 72–89; PULSE 99–108; RESP 16–19; TEMP 98.6–100.6; O2SAT 93–99
[2023-01-01 05:55] LABS: Eosinophils # (auto) 0 10 ^3/uL (0-0.8)
[2023-01-01 05:57] LABS: Basophils # (auto) 0.1 10 ^3/uL (0-0.2); Basophils % (auto) 0.5 % (0.0-2.0); Eosinophils % (auto) 0.1 % (0.0-7.0); Hematocrit 34.2 % (41.0-53.0); Lymphocytes # (auto) 1.5 10 ^3/uL (0.4-5.4); Lymphocytes % (auto) 13.1 % (10.0-50.0); Mean Corpuscular Hemoglobin 25.7 pg (28.0-32.0); Mean Corpuscular Hgb Conc. 32.2 g/dL (32.0-36.0); Mean Corpuscular Volume 79.6 fL (80.0-100.0); Neutrophils % (auto) 77.3 % (37.0-80.0); Red Cell Distribution Width 15.2 % (11.8-14.3); White Blood Cell 11.6 10^3/uL (4.4-10.8)
[2023-01-01 06:03] LABS: Anion Gap 6 (5-15); Carbon Dioxide 29 mmol/L (20-30); Chloride 101 mmol/L (98-107); Sodium 136 mmol/L (136-145)
[2023-01-01 06:04] LABS: Calcium 9.3 mg/dL (8.7-10.4)
[2023-01-01 06:09] LABS: BUN/Creatinine Ratio 18.5 (10.0-20.0); Blood Urea Nitrogen 17 mg/dL (9-23); Glucose 180 mg/dL (74-106)
[2023-01-01] MEDS: InsuLIN REG 1unit/0.01ml Soln (100units/ml) SC SCH ×4 (06:34→22:18)
[2023-01-01] MEDS: HYDROcodone-ACET 5/325MG TAB PO PRN (06:37)
[2023-01-01] MEDS: ACCU-CHEK COMFORT CURVE STRIP VI SCH ×4 (06:37→22:19)
[2023-01-01] MEDS: ASCORBIC ACID 500 MG TAB PO SCH ×2 (10:56→22:15)
[2023-01-01] MEDS: ZINC SULFATE 220mg CAP or TAB PO SCH (10:56)
[2023-01-01] MEDS: MULTIPLE VITAMIN TAB PO SCH (10:56)
[2023-01-01] MEDS: HYDROmorphone HCL 2 MG/ML VL/or syr IV PRN (20:05)
[2023-01-02] VITALS (7 sets, daily range): BP systolic 116–140; BP diastolic 71–84; PULSE 91–103; RESP 17–20; TEMP 98–99; O2SAT 95–98
[2023-01-02] MEDS: HYDROmorphone HCL 2 MG/ML VL/or syr IV PRN ×3 (05:07→18:50)
[2023-01-02] MEDS: InsuLIN REG 1unit/0.01ml Soln (100units/ml) SC SCH ×4 (07:00→22:04)
[2023-01-02 07:02] LABS: Calcium 9.2 mg/dL (8.5-10.1); Chloride 103 mmol/L (98-107); Potassium 3.9 mmol/L (3.5-5.1); Sodium 140 mmol/L (136-145)
[2023-01-02 07:03] LABS: Anion Gap 7 (5-15); Carbon Dioxide 30 mmol/L (20-30)
[2023-01-02 07:08] LABS: BUN/Creatinine Ratio 24.4 (10.0-20.0); Blood Urea Nitrogen 21 mg/dL (9-23); Glucose 134 mg/dL (74-106)
[2023-01-02 07:13] LABS: Basophils # (auto) 0.1 10 ^3/uL (0-0.2); Basophils % (auto) 0.6 % (0.0-2.0); Lymphocytes # (auto) 1.7 10 ^3/uL (0.4-5.4); Monocytes # (auto) 0.9 10 ^3/uL (0-1.3); Neutrophils # (auto) 6.8 10 ^3/uL (1.6-8.6); Red Cell Distribution Width 15.2 % (11.8-14.3); White Blood Cell 9.5 10^3/uL (4.4-10.8)
[2023-01-02 07:15] LABS: Eosinophils # (auto) 0.1 10 ^3/uL (0-0.8); Eosinophils % (auto) 1.2 % (0.0-7.0); Hematocrit 31.3 % (41.0-53.0); Hemoglobin 10.3 g/dL (13.5-17.5); Lymphocytes % (auto) 17.9 % (10.0-50.0); Mean Corpuscular Hemoglobin 26.6 pg (28.0-32.0); Mean Corpuscular Hgb Conc. 33.1 g/dL (32.0-36.0); Mean Corpuscular Volume 80.4 fL (80.0-100.0); Monocytes % (auto) 9.1 % (0.0-12.0); Neutrophils % (auto) 71.2 % (37.0-80.0); Red Blood Cells 3.89 10^6/uL (4.5-5.90)
[2023-01-02] MEDS: ACCU-CHEK COMFORT CURVE STRIP VI SCH ×4 (07:22→22:02)
[2023-01-02] MEDS: ASCORBIC ACID 500 MG TAB PO SCH ×2 (12:54→22:01)
[2023-01-02] MEDS: MULTIPLE VITAMIN TAB PO SCH (12:54)
[2023-01-02] MEDS: ZINC SULFATE 220mg CAP or TAB PO SCH (12:54)
[2023-01-03] VITALS (7 sets, daily range): BP systolic 119–152; BP diastolic 68–78; PULSE 87–112; RESP 16–20; TEMP 98.2–98.9; O2SAT 95–98
[2023-01-03 06:17] LABS: Eosinophils # (auto) 0.1 10 ^3/uL (0-0.8); Hemoglobin 10.2 g/dL (13.5-17.5); Monocytes # (auto) 0.7 10 ^3/uL (0-1.3)
[2023-01-03 06:19] LABS: Basophils # (auto) 0 10 ^3/uL (0-0.2); Basophils % (auto) 0.5 % (0.0-2.0); Chloride 101 mmol/L (98-107); Eosinophils % (auto) 1.1 % (0.0-7.0); Hematocrit 31.1 % (41.0-53.0); Lymphocytes # (auto) 1.5 10 ^3/uL (0.4-5.4); Lymphocytes % (auto) 17.5 % (10.0-50.0); Mean Corpuscular Hemoglobin 26.2 pg (28.0-32.0); Mean Corpuscular Hgb Conc. 32.6 g/dL (32.0-36.0); Mean Corpuscular Volume 80.3 fL (80.0-100.0); Monocytes % (auto) 7.8 % (0.0-12.0); Neutrophils # (auto) 6.2 10 ^3/uL (1.6-8.6); Neutrophils % (auto) 73.1 % (37.0-80.0); Nucleated Red Blood Cells % 0.1 %; Potassium 3.9 mmol/L (3.5-5.1); Red Blood Cells 3.87 10^6/uL (4.5-5.90); Red Cell Distribution Width 14.9 % (11.8-14.3); Sodium 137 mmol/L (136-145); White Blood Cell 8.5 10^3/uL (4.4-10.8)
[2023-01-03 06:20] LABS: Anion Gap 7 (5-15); Carbon Dioxide 29 mmol/L (20-30)
[2023-01-03] MEDS: ACCU-CHEK COMFORT CURVE STRIP VI SCH ×4 (06:22→22:07)
[2023-01-03] MEDS: InsuLIN REG 1unit/0.01ml Soln (100units/ml) SC SCH ×4 (06:22→22:00)
[2023-01-03 06:25] LABS: BUN/Creatinine Ratio 27.3 (10.0-20.0); Blood Urea Nitrogen 24 mg/dL (9-23); Glucose 117 mg/dL (74-106)
[2023-01-03] MEDS: HYDROcodone-ACET 5/325MG TAB PO PRN ×3 (08:33→22:04)
[2023-01-03] MEDS: ASCORBIC ACID 500 MG TAB PO SCH ×2 (10:28→22:04)
[2023-01-03] MEDS: ZINC SULFATE 220mg CAP or TAB PO SCH (10:28)
[2023-01-03] MEDS: MULTIPLE VITAMIN TAB PO SCH (10:28)
[2023-01-04] VITALS (7 sets, daily range): BP systolic 105–151; BP diastolic 65–84; PULSE 91–99; RESP 16–20; TEMP 98.1–99.6; O2SAT 95–99
[2023-01-04] MEDS: ACCU-CHEK COMFORT CURVE STRIP VI SCH ×4 (05:30→21:05)
[2023-01-04] MEDS: InsuLIN REG 1unit/0.01ml Soln (100units/ml) SC SCH ×4 (07:00→21:12)
[2023-01-04] MEDS: ZINC SULFATE 220mg CAP or TAB PO SCH (10:01)
[2023-01-04] MEDS: ASCORBIC ACID 500 MG TAB PO SCH ×2 (10:01→21:09)
[2023-01-04] MEDS: MULTIPLE VITAMIN TAB PO SCH (10:01)
[2023-01-04] MEDS: HYDROcodone-ACET 5/325MG TAB PO PRN ×2 (10:02→21:09)
[2023-01-05] VITALS (7 sets, daily range): BP systolic 108–140; BP diastolic 65–181; PULSE 84–91; RESP 17–20; TEMP 97.6–98.9; O2SAT 97–98
[2023-01-05 06:08] LABS: Basophils # (auto) 0 10 ^3/uL (0-0.2); Eosinophils # (auto) 0.2 10 ^3/uL (0-0.8); Neutrophils # (auto) 4.8 10 ^3/uL (1.6-8.6)
[2023-01-05] MEDS: ACCU-CHEK COMFORT CURVE STRIP VI SCH ×4 (06:09→21:41)
[2023-01-05] MEDS: InsuLIN REG 1unit/0.01ml Soln (100units/ml) SC SCH ×4 (06:09→21:44)
[2023-01-05 06:11] LABS: Basophils % (auto) 0.5 % (0.0-2.0); Eosinophils % (auto) 2.3 % (0.0-7.0); Hematocrit 30.4 % (41.0-53.0); Hemoglobin 9.9 g/dL (13.5-17.5); Lymphocytes # (auto) 1.8 10 ^3/uL (0.4-5.4); Lymphocytes % (auto) 24.4 % (10.0-50.0); Mean Corpuscular Hgb Conc. 32.5 g/dL (32.0-36.0); Mean Corpuscular Volume 79.8 fL (80.0-100.0); Monocytes # (auto) 0.6 10 ^3/uL (0-1.3); Monocytes % (auto) 7.7 % (0.0-12.0); Neutrophils % (auto) 65.1 % (37.0-80.0); Red Blood Cells 3.82 10^6/uL (4.5-5.90); Red Cell Distribution Width 15.1 % (11.8-14.3); White Blood Cell 7.4 10^3/uL (4.4-10.8)
[2023-01-05 06:25] LABS: Alanine Aminotransferase 18 U/L (7-40); Alkaline Phosphatase 73 U/L (46-116); Anion Gap 4 (5-15); BUN/Creatinine Ratio 20.3 (10.0-20.0); Blood Urea Nitrogen 16 mg/dL (9-23); Calcium 8.8 mg/dL (8.5-10.1); Carbon Dioxide 31 mmol/L (20-30); Chloride 104 mmol/L (98-107); Glucose 108 mg/dL (74-106); Sodium 139 mmol/L (136-145)
[2023-01-05 06:26] LABS: Albumin 3.8 g/dL (3.2-4.8); Aspartate Aminotransferase 17 U/L (13-40)
[2023-01-05 06:27] LABS: Bilirubin, Total 0.5 mg/dL (0.2-1.0); Total Protein 6.5 g/dL (5.7-8.2)
[2023-01-05] MEDS: MULTIPLE VITAMIN TAB PO SCH (09:53)
[2023-01-05] MEDS: ASCORBIC ACID 500 MG TAB PO SCH ×2 (09:54→21:41)
[2023-01-05] MEDS: ZINC SULFATE 220mg CAP or TAB PO SCH (09:54)
[2023-01-05] MEDS: HYDROcodone-ACET 5/325MG TAB PO PRN ×3 (09:58→21:41)
[2023-01-06] VITALS (7 sets, daily range): BP systolic 109–133; BP diastolic 60–75; PULSE 83–105; RESP 17–22; TEMP 98.3–98.9; O2SAT 94–99
[2023-01-06] MEDS: ACCU-CHEK COMFORT CURVE STRIP VI SCH ×4 (06:13→21:21)
[2023-01-06] MEDS: InsuLIN REG 1unit/0.01ml Soln (100units/ml) SC SCH ×4 (06:13→21:21)
[2023-01-06 07:54] LABS: Basophils # (auto) 0 10 ^3/uL (0-0.2); Basophils % (auto) 0.5 % (0.0-2.0); Chloride 103 mmol/L (98-107); Eosinophils # (auto) 0.2 10 ^3/uL (0-0.8); Hemoglobin 10.2 g/dL (13.5-17.5); Monocytes # (auto) 0.5 10 ^3/uL (0-1.3); Potassium 4.4 mmol/L (3.5-5.1); Red Cell Distribution Width 14.7 % (11.8-14.3); Sodium 138 mmol/L (136-145)
[2023-01-06 07:55] LABS: Anion Gap 5 (5-15); Carbon Dioxide 30 mmol/L (20-30)
[2023-01-06 07:56] LABS: Eosinophils % (auto) 2.8 % (0.0-7.0); Hematocrit 31.1 % (41.0-53.0); Lymphocytes # (auto) 1.4 10 ^3/uL (0.4-5.4); Lymphocytes % (auto) 19.8 % (10.0-50.0); Mean Corpuscular Hemoglobin 26.2 pg (28.0-32.0); Mean Corpuscular Hgb Conc. 32.8 g/dL (32.0-36.0); Monocytes % (auto) 6.7 % (0.0-12.0); Neutrophils % (auto) 70.2 % (37.0-80.0); Red Blood Cells 3.89 10^6/uL (4.5-5.90); White Blood Cell 7.1 10^3/uL (4.4-10.8)
[2023-01-06 08:00] LABS: BUN/Creatinine Ratio 21.3 (10.0-20.0); Blood Urea Nitrogen 17 mg/dL (9-23); Glucose 112 mg/dL (74-106)
[2023-01-06] MEDS: ASCORBIC ACID 500 MG TAB PO SCH ×2 (09:37→21:20)
[2023-01-06] MEDS: HYDROcodone-ACET 5/325MG TAB PO PRN ×2 (09:37→20:46)
[2023-01-06] MEDS: ZINC SULFATE 220mg CAP or TAB PO SCH (09:37)
[2023-01-06] MEDS: MULTIPLE VITAMIN TAB PO SCH (09:37)
[2023-01-07] VITALS (7 sets, daily range): BP systolic 103–144; BP diastolic 65–81; PULSE 93–107; RESP 15–18; TEMP 98.8–99.8; O2SAT 95–97
[2023-01-07] MEDS: InsuLIN REG 1unit/0.01ml Soln (100units/ml) SC SCH ×4 (06:56→22:00)
[2023-01-07] MEDS: ACCU-CHEK COMFORT CURVE STRIP VI SCH ×4 (06:56→21:36)
[2023-01-07 07:10] LABS: Eosinophils # (auto) 0.2 10 ^3/uL (0-0.8); Eosinophils % (auto) 1.9 % (0.0-7.0); Lymphocytes # (auto) 1.4 10 ^3/uL (0.4-5.4)
[2023-01-07 07:14] LABS: Basophils # (auto) 0 10 ^3/uL (0-0.2); Basophils % (auto) 0.5 % (0.0-2.0); Hematocrit 30.2 % (41.0-53.0); Lymphocytes % (auto) 15.1 % (10.0-50.0); Mean Corpuscular Hemoglobin 26.6 pg (28.0-32.0); Mean Corpuscular Hgb Conc. 33.2 g/dL (32.0-36.0); Mean Corpuscular Volume 80.1 fL (80.0-100.0); Monocytes # (auto) 0.7 10 ^3/uL (0-1.3); Monocytes % (auto) 7.3 % (0.0-12.0); Neutrophils % (auto) 75.2 % (37.0-80.0); Red Blood Cells 3.77 10^6/uL (4.5-5.90); Red Cell Distribution Width 15.1 % (11.8-14.3); White Blood Cell 9.4 10^3/uL (4.4-10.8)
[2023-01-07 07:22] LABS: Chloride 103 mmol/L (98-107); Sodium 139 mmol/L (136-145)
[2023-01-07 07:23] LABS: Anion Gap 8 (5-15); Carbon Dioxide 28 mmol/L (20-30)
[2023-01-07 07:28] LABS: BUN/Creatinine Ratio 15.7 (10.0-20.0); Blood Urea Nitrogen 13 mg/dL (9-23); Glucose 97 mg/dL (74-106)
[2023-01-07] MEDS: ASCORBIC ACID 500 MG TAB PO SCH ×2 (08:40→21:35)
[2023-01-07] MEDS: ZINC SULFATE 220mg CAP or TAB PO SCH (08:40)
[2023-01-07] MEDS: MULTIPLE VITAMIN TAB PO SCH (08:41)
[2023-01-07] MEDS: HYDROcodone-ACET 5/325MG TAB PO PRN (21:36)
[2023-01-08] VITALS (8 sets, daily range): BP systolic 106–129; BP diastolic 66–77; PULSE 74–106; RESP 12–18; TEMP 98.2–98.7; O2SAT 95–99
[2023-01-08 06:02] LABS: Basophils # (auto) 0.1 10 ^3/uL (0-0.2); Basophils % (auto) 0.6 % (0.0-2.0); Eosinophils # (auto) 0.2 10 ^3/uL (0-0.8); Hemoglobin 9.8 g/dL (13.5-17.5); Lymphocytes # (auto) 1.6 10 ^3/uL (0.4-5.4); Monocytes # (auto) 0.8 10 ^3/uL (0-1.3)
[2023-01-08 06:08] LABS: Eosinophils % (auto) 2.4 % (0.0-7.0); Hematocrit 29.8 % (41.0-53.0); Lymphocytes % (auto) 16.7 % (10.0-50.0); Mean Corpuscular Hemoglobin 25.9 pg (28.0-32.0); Mean Corpuscular Hgb Conc. 32.7 g/dL (32.0-36.0); Mean Corpuscular Volume 79.2 fL (80.0-100.0); Monocytes % (auto) 8.1 % (0.0-12.0); Neutrophils # (auto) 6.7 10 ^3/uL (1.6-8.6); Neutrophils % (auto) 72.2 % (37.0-80.0); Red Blood Cells 3.76 10^6/uL (4.5-5.90); Red Cell Distribution Width 14.8 % (11.8-14.3); White Blood Cell 9.3 10^3/uL (4.4-10.8)
[2023-01-08 06:28] LABS: Chloride 104 mmol/L (98-107); Sodium 139 mmol/L (136-145)
[2023-01-08 06:29] LABS: Anion Gap 7 (5-15); Carbon Dioxide 28 mmol/L (20-30)
[2023-01-08 06:34] LABS: BUN/Creatinine Ratio 17.1 (10.0-20.0); Blood Urea Nitrogen 14 mg/dL (9-23); Glucose 127 mg/dL (74-106)
[2023-01-08] MEDS: ACCU-CHEK COMFORT CURVE STRIP VI SCH ×4 (07:00→21:48)
[2023-01-08] MEDS: InsuLIN REG 1unit/0.01ml Soln (100units/ml) SC SCH ×4 (08:03→21:49)
[2023-01-08] MEDS: HYDROcodone-ACET 5/325MG TAB PO PRN ×2 (08:04→19:52)
[2023-01-08] MEDS: ASCORBIC ACID 500 MG TAB PO SCH ×2 (10:06→21:46)
[2023-01-08] MEDS: ZINC SULFATE 220mg CAP or TAB PO SCH (10:06)
[2023-01-08] MEDS: MULTIPLE VITAMIN TAB PO SCH (10:06)
[2023-01-09] VITALS (7 sets, daily range): BP systolic 102–133; BP diastolic 70–84; PULSE 96–109; RESP 18–20; TEMP 97.9–98.8; O2SAT 97–100
[2023-01-09] MEDS: ACCU-CHEK COMFORT CURVE STRIP VI SCH ×4 (06:25→22:01)
[2023-01-09] MEDS: InsuLIN REG 1unit/0.01ml Soln (100units/ml) SC SCH ×4 (06:25→22:05)
[2023-01-09 06:41] LABS: Basophils # (auto) 0.1 10 ^3/uL (0-0.2); Basophils % (auto) 0.6 % (0.0-2.0); Eosinophils # (auto) 0.3 10 ^3/uL (0-0.8); Hemoglobin 9.9 g/dL (13.5-17.5); Monocytes # (auto) 0.7 10 ^3/uL (0-1.3)
[2023-01-09 06:44] LABS: Eosinophils % (auto) 3.2 % (0.0-7.0); Hematocrit 31.1 % (41.0-53.0); Lymphocytes # (auto) 1.5 10 ^3/uL (0.4-5.4); Lymphocytes % (auto) 16.5 % (10.0-50.0); Mean Corpuscular Hemoglobin 25.4 pg (28.0-32.0); Mean Corpuscular Hgb Conc. 31.8 g/dL (32.0-36.0); Mean Corpuscular Volume 80.1 fL (80.0-100.0); Monocytes % (auto) 7.8 % (0.0-12.0); Neutrophils # (auto) 6.5 10 ^3/uL (1.6-8.6); Neutrophils % (auto) 71.9 % (37.0-80.0); Nucleated Red Blood Cells % 0.1 %; Red Blood Cells 3.88 10^6/uL (4.5-5.90); Red Cell Distribution Width 14.9 % (11.8-14.3); White Blood Cell 9.1 10^3/uL (4.4-10.8)
[2023-01-09 06:50] LABS: Chloride 104 mmol/L (98-107); Potassium 4.2 mmol/L (3.5-5.1); Sodium 139 mmol/L (136-145)
[2023-01-09 06:51] LABS: Calcium 9.1 mg/dL (8.5-10.1)
[2023-01-09 06:56] LABS: BUN/Creatinine Ratio 18.8 (10.0-20.0); Blood Urea Nitrogen 16 mg/dL (9-23); Glucose 101 mg/dL (74-106)
[2023-01-09 07:29] LABS: Anion Gap 7 (5-15); Carbon Dioxide 28 mmol/L (20-30)
[2023-01-09] MEDS: HYDROcodone-ACET 5/325MG TAB PO PRN ×2 (07:36→22:00)
[2023-01-09] MEDS: MULTIPLE VITAMIN TAB PO SCH (09:14)
[2023-01-09] MEDS: ZINC SULFATE 220mg CAP or TAB PO SCH (09:14)
[2023-01-09] MEDS: ASCORBIC ACID 500 MG TAB PO SCH ×2 (09:14→22:00)
[2023-01-10] VITALS (7 sets, daily range): BP systolic 112–136; BP diastolic 67–82; PULSE 85–102; RESP 16–20; TEMP 98.2–98.7; O2SAT 97–99
[2023-01-10] MEDS: HYDROcodone-ACET 5/325MG TAB PO PRN ×2 (06:16→19:44)
[2023-01-10] MEDS: ACCU-CHEK COMFORT CURVE STRIP VI SCH (06:18)
[2023-01-10] MEDS: InsuLIN REG 1unit/0.01ml Soln (100units/ml) SC SCH (06:18)
[2023-01-10 06:40] LABS: Basophils # (auto) 0.1 10 ^3/uL (0-0.2); Basophils % (auto) 0.7 % (0.0-2.0); Eosinophils # (auto) 0.4 10 ^3/uL (0-0.8); Eosinophils % (auto) 4.3 % (0.0-7.0); Hematocrit 30.3 % (41.0-53.0); Hemoglobin 9.9 g/dL (13.5-17.5); Lymphocytes # (auto) 1.5 10 ^3/uL (0.4-5.4); Lymphocytes % (auto) 17.5 % (10.0-50.0); Mean Corpuscular Hemoglobin 25.9 pg (28.0-32.0); Mean Corpuscular Hgb Conc. 32.6 g/dL (32.0-36.0); Mean Corpuscular Volume 79.3 fL (80.0-100.0); Monocytes # (auto) 0.6 10 ^3/uL (0-1.3); Monocytes % (auto) 7.5 % (0.0-12.0); Red Blood Cells 3.82 10^6/uL (4.5-5.90); Red Cell Distribution Width 14.8 % (11.8-14.3); White Blood Cell 8.5 10^3/uL (4.4-10.8)
[2023-01-10 06:46] LABS: Chloride 102 mmol/L (98-107); Potassium 3.9 mmol/L (3.5-5.1); Sodium 138 mmol/L (136-145)
[2023-01-10 06:47] LABS: Calcium 8.9 mg/dL (8.5-10.1)
[2023-01-10 06:52] LABS: BUN/Creatinine Ratio 20.2 (10.0-20.0); Blood Urea Nitrogen 17 mg/dL (9-23); Glucose 97 mg/dL (74-106)
[2023-01-10 06:57] LABS: Anion Gap 7 (5-15); Carbon Dioxide 26 mmol/L (20-30)
[2023-01-10] MEDS: MULTIPLE VITAMIN TAB PO SCH (10:23)
[2023-01-10] MEDS: ZINC SULFATE 220mg CAP or TAB PO SCH (10:23)
[2023-01-10] MEDS: ASCORBIC ACID 500 MG TAB PO SCH ×2 (10:23→22:25)
[2023-01-10] MEDS: Juven Orange Powder PACKET 27.5gm PO SCH (18:02)
[2023-01-11 05:00] VITALS: BP 123/71; PULSE 93; RESP 17; TEMP 98.6; O2SAT 98
[2023-01-11 08:00] VITALS: PULSE 90
[2023-01-11] MEDS: Juven Orange Powder PACKET 27.5gm PO SCH (08:00)
[2023-01-11 08:30] VITALS: BP 98/69; PULSE 95; RESP 20; TEMP 96.1; O2SAT 97
[2023-01-11] MEDS: ASCORBIC ACID 500 MG TAB PO SCH (08:31)
[2023-01-11] MEDS: MULTIPLE VITAMIN TAB PO SCH (08:31)
[2023-01-11] MEDS: ZINC SULFATE 220mg CAP or TAB PO SCH (08:31)
[2023-01-11] MEDS: HYDROcodone-ACET 5/325MG TAB PO PRN (08:32)
[2023-01-11 12:45] VITALS: BP 110/69; PULSE 86; RESP 19; TEMP 98.3; O2SAT 98
[2023-01-11 16:40] VITALS: BP 110/71; PULSE 90; RESP 19; TEMP 98.7; O2SAT 98
== END 2023-01-11 17:27 | disposition home or self-care (01) | DRG 305 ==
LOC: ER 11:17 → TELE 16:39 → TELE-EAST 12-17 08:45
PROVIDERS: ADMIT Internal Medicine Pulmonary Disease; ATTEND Student in an Organized Health Care Education/Training Program
PROC: B410YZZ Fluoroscopy of Abdominal Aorta using Other Contrast (ICD-10-PCS; 2022-12-19)
PROC: B41FYZZ Fluoroscopy of Right Lower Extremity Arteries using Other Contrast (ICD-10-PCS; 2022-12-19)
PROC: B41GYZZ Fluoroscopy of Left Lower Extremity Arteries using Other Contrast (ICD-10-PCS; 2022-12-19)
PROC: 0Y6H0Z1 Detachment at Right Lower Leg, High, Open Approach (ICD-10-PCS; principal; 2022-12-30 07:32)
DX: E11.52 Type 2 diabetes mellitus with diabetic peripheral angiopathy with gangrene (principal); R65.10 Systemic inflammatory response syndrome (SIRS) of non-infectious origin without acute organ dysfunction; E11.69 Type 2 diabetes mellitus with other specified complication; D72.829 Elevated white blood cell count, unspecified; I70.261 Atherosclerosis of native arteries of extremities with gangrene, right leg; E78.5 Hyperlipidemia, unspecified; R63.6 Underweight; I10 Essential (primary) hypertension; Z89.512 Acquired absence of left leg below knee; Z68.1 Body mass index [BMI] 19.9 or less, adult; Z80.0 Family history of malignant neoplasm of digestive organs; Z83.3 Family history of diabetes mellitus
CPT/HCPCS: 36415; 73701; 75625; 75716; 76937; 80048; 80053; 80061; 82728; 82962; 83036; 83540; 83550; 83605; 84484; 85025; 85610; 85652; 85730; 86141; 86850; 86900; 86901; 87081; 93926; 96365; 97110; 97116; 97163; 97530; 99152; G0378; J0171; J0330; J0690; J1100; J1815; J2250; J2405; J2543; J2704; J3490; Q9967

== ENCOUNTER 2023-01-19 10:50 | Inpatient (IN) | payer MEDICAID, OTHER ==
[~2023-01-19] VITALS: Ht 160 cm; Wt 45.0 kg
[2023-01-19] VITALS (20 sets, daily range): BP systolic 72–125; BP diastolic 43–73; PULSE 101–117; RESP 16–39; TEMP 98.1–99; O2SAT 94–100
[2023-01-19 12:04] LABS: Hemoglobin 8.8 g/dL (13.5-17.5); Red Blood Cells 3.45 10^6/uL (4.5-5.90); Red Cell Distribution Width 15.8 % (11.8-14.3)
[2023-01-19 12:06] LABS: Hematocrit 28.4 % (41.0-53.0); Mean Corpuscular Hemoglobin 25.5 pg (28.0-32.0); Mean Corpuscular Hgb Conc. 30.9 g/dL (32.0-36.0); Mean Corpuscular Volume 82.4 fL (80.0-100.0)
[2023-01-19 12:15] LABS: Alanine Aminotransferase 30 U/L (7-40); Alkaline Phosphatase 79 U/L (46-116); Calcium 8.4 mg/dL (8.7-10.4); Carbon Dioxide 21 mmol/L (20-30); Chloride 99 mmol/L (98-107); Glucose 289 mg/dL (74-106)
[2023-01-19 12:16] LABS: Albumin 3.4 g/dL (3.2-4.8); Anion Gap 13 (5-15); Aspartate Aminotransferase 28 U/L (13-40); Bilirubin, Total 0.4 mg/dL (0.2-1.0); Blood Urea Nitrogen 57 mg/dL (9-23); Potassium 3.6 mmol/L (3.5-5.1); Sodium 133 mmol/L (136-145); Total Protein 5.8 g/dL (5.7-8.2)
[2023-01-19 12:20] LABS: BUN/Creatinine Ratio 28.1 (10.0-20.0)
[2023-01-19 12:21] LABS: White Blood Cell 35.2 10^3/uL (4.4-10.8)
[2023-01-19 12:23] LABS: Basophils % (manual) 0 (0.0-2.0); Blast Cells 0; Eosinophils % (manual) 0 (0-7); Metamyelocytes % 0; Myelocytes % 0; Promyelocytes % 0; Reactive Lymphocytes 0
[2023-01-19] MEDS ORDERED: SODIUM CHLORIDE 0.9% 1,000 ML IV ONE (12:45)
[2023-01-19] MEDS ORDERED: PANTOPRAZOLE 40 MG/10 ML VIAL INJ IV ONE (12:45)
[2023-01-19] MEDS ORDERED: VANCOMYCIN PER PHARMACY 1,000 MG IV SCH (12:45)
[2023-01-19] MEDS ORDERED: SODIUM CHLORIDE 0.9% 1,300 ML IV ONE (12:45)
[2023-01-19] MEDS ORDERED: ACETAMINOPHEN 325 MG TAB PO PRN ×2 (12:45→17:00)
[2023-01-19] MEDS ORDERED: ONDANSETRON HCL 4 MG/2 ML VIAL IV ONE (12:45)
[2023-01-19] MEDS ORDERED: PIPERACILLIN-TAZOB 3.375GM 100 ML IV ONE (13:00)
[2023-01-19 13:23] LABS: INR 1.22 (0.9-1.15); Partial Thromboplastin Time 32.5 SEC (24.5-34.5); Prothrombin Time 12.6 sec (9.3-11.8)
[2023-01-19] MEDS ORDERED: metroNIDAZOLE 500MG/100ML 100 ML IV ONE (13:30)
[2023-01-19] MEDS ORDERED: LINEZOLID 600MG/300ML 300 ML IV SCH (13:30)
[2023-01-19] MEDS ORDERED: LINEZOLID 600MG/300ML 300 ML IV ONE (13:45)
[2023-01-19 13:46] LABS: Lactic Acid w/Reflex 2.9 mmol/L (0.4-2.0)
[2023-01-19] MEDS ORDERED: VANCOMYCIN 1GM/250ML 250 ML IV ONE (14:00)
[2023-01-19 16:09] LABS: Erythrocyte Sedimentation Rate 53 mm/hr (0-20)
[2023-01-19] MEDS ORDERED: FLEET ENEMA(ADULT) 135 ML PR ONE (16:15)
[2023-01-19] MEDS: SODIUM CHLORIDE 0.9% 1,000 ML IV SCH (16:50)
[2023-01-19] MEDS ORDERED: DOCUSATE SOD 100 MG CAP PO PRN (17:00)
[2023-01-19] MEDS ORDERED: DEXTROSE (50%) 50ML SYRG IV PRN (17:00)
[2023-01-19] MEDS ORDERED: NITROGLYCERIN 0.4 MG SL TAB SL PRN (17:00)
[2023-01-19] MEDS ORDERED: MORPHINE SULFATE INJ 2 MG/ml SYRG IV PRN (17:00)
[2023-01-19] MEDS: NOREPINEPHRINE 8 MG/250ML KIT 250 ML IV SCH (17:06)
[2023-01-19 17:07] LABS: Anisocytosis Slight; Band Neutrophils % (manual) 9; Lymphocytes % (manual) 3 (10.0-50.0); Monocytes % (manual) 4 (0-12); Platelet Estimate Increased
[2023-01-19 17:11] LABS: Urine Bacteria FEW /hpf (None Seen); Urine Blood Negative /uL (Negative); Urine Clarity Clear (Clear); Urine Color Yellow (Yellow); Urine Hyaline Cast FEW /lpf (0 - 2); Urine Mucus FEW (None Seen); Urine Protein, UAD TRACE (Negative); Urine Specific Gravity 1.019 (1.001-1.035); Urine Urobilinogen Normal (Negative); Urine WBC 1 /hpf (0 - 3)
[2023-01-19] MEDS: ACCU-CHEK COMFORT CURVE STRIP VI SCH ×2 (17:21→22:45)
[2023-01-19] MEDS: InsuLIN REG 1unit/0.01ml Soln (100units/ml) SC SCH ×2 (17:30→22:47)
[2023-01-19 19:41] LABS: Creatinine, Urine 90.85 mg/dL (30.0-125.0)
[2023-01-19] MEDS: ALBUMIN 25% 100 ML IV SCH ×2 (20:54→21:56)
[2023-01-19] MEDS: PIPERACILLIN-TAZOB 3.375GM 100 ML IV SCH (21:01)
[2023-01-19 21:40] LABS: Hematocrit 20.2 % (41.0-53.0)
[2023-01-19 21:44] LABS: Hemoglobin 6.4 g/dL (13.5-17.5)
[2023-01-19] MEDS: PANTOPRAZOLE 40 MG/10 ML VIAL INJ IV SCH (22:38)
[2023-01-20] VITALS (57 sets, daily range): BP systolic 76–153; BP diastolic 40–71; PULSE 82–106; RESP 16–35; TEMP 97.9–99.2; O2SAT 95–100
[2023-01-20] MEDS ORDERED: METF-370 PO (00:31)
[2023-01-20] MEDS: SODIUM CHLORIDE 0.9% 1,000 ML IV SCH ×3 (02:45→22:30)
[2023-01-20] MEDS: PIPERACILLIN-TAZOB 3.375GM 100 ML IV SCH ×3 (04:35→17:14)
[2023-01-20] MEDS: ACCU-CHEK COMFORT CURVE STRIP VI SCH ×4 (06:54→22:30)
[2023-01-20] MEDS: InsuLIN REG 1unit/0.01ml Soln (100units/ml) SC SCH ×4 (06:54→22:00)
[2023-01-20 07:46] LABS: Alanine Aminotransferase 17 U/L (7-40); Albumin 3.1 g/dL (3.2-4.8); Alkaline Phosphatase 46 U/L (46-116); Anion Gap 10 (5-15); Aspartate Aminotransferase 22 U/L (13-40); BUN/Creatinine Ratio 31.2 (10.0-20.0); Calcium 7.7 mg/dL (8.7-10.4); Carbon Dioxide 21 mmol/L (20-30)
[2023-01-20 07:47] LABS: Bilirubin, Total 1.1 mg/dL (0.2-1.0); Total Protein 4.7 g/dL (5.7-8.2)
[2023-01-20 07:54] LABS: Blood Urea Nitrogen 43 mg/dL (9-23); Chloride 110 mmol/L (98-107); Glucose 134 mg/dL (74-106); Sodium 141 mmol/L (136-145)
[2023-01-20 07:56] LABS: Potassium 2.5 mmol/L (3.5-5.1)
[2023-01-20] MEDS ORDERED: ENOXAPARIN SOD 40 MG/0.4 ML SYRINGE SC SCH (10:00)
[2023-01-20] MEDS: PANTOPRAZOLE 40 MG/10 ML VIAL INJ IV SCH ×2 (10:22→22:30)
[2023-01-20 10:42] LABS: Hematocrit 26.7 % (41.0-53.0); Hemoglobin 8.8 g/dL (13.5-17.5)
[2023-01-20] MEDS ORDERED: POTASSIUM EFFERVESENT TAB 25 MEQ PO ONE (11:15)
[2023-01-20] MEDS: POTASSIUM CHL 20MEQ/100ML 100 ML IV SCH ×4 (12:50→23:22)
[2023-01-20] MEDS: NOREPINEPHRINE 8 MG/250ML KIT 250 ML IV SCH (12:51)
[2023-01-20 16:19] LABS: Magnesium 2.2 mg/dL (1.6-2.6)
[2023-01-20 16:21] LABS: Potassium 2.5 mmol/L (3.5-5.1)
[2023-01-21] VITALS (7 sets, daily range): BP systolic 80–99; BP diastolic 46–58; PULSE 80–96; RESP 12–18; TEMP 98–98.5; O2SAT 97–99
[2023-01-21] MEDS: POTASSIUM CHL 20MEQ/100ML 100 ML IV SCH ×6 (02:23→21:56)
[2023-01-21] MEDS: PIPERACILLIN-TAZOB 3.375GM 100 ML IV SCH ×3 (04:51→19:54)
[2023-01-21] MEDS: InsuLIN REG 1unit/0.01ml Soln (100units/ml) SC SCH ×4 (06:09→22:15)
[2023-01-21] MEDS: ACCU-CHEK COMFORT CURVE STRIP VI SCH ×4 (06:10→21:56)
[2023-01-21 06:24] LABS: Anion Gap 15 (5-15); Calcium 8.4 mg/dL (8.5-10.1); Carbon Dioxide 19 mmol/L (20-30); Chloride 115 mmol/L (98-107)
[2023-01-21 06:30] LABS: BUN/Creatinine Ratio 26.3 (10.0-20.0); Glucose 97 mg/dL (74-106)
[2023-01-21 06:37] LABS: Blood Urea Nitrogen 25 mg/dL (9-23); Sodium 149 mmol/L (136-145)
[2023-01-21 06:42] LABS: Potassium 2.7 mmol/L (3.5-5.1)
[2023-01-21 06:44] LABS: Basophils # (auto) 0 10 ^3/uL (0-0.2); Basophils % (auto) 0.1 % (0.0-2.0); Eosinophils # (auto) 0 10 ^3/uL (0-0.8); Hemoglobin 8.5 g/dL (13.5-17.5); Lymphocytes # (auto) 0.8 10 ^3/uL (0.4-5.4); Lymphocytes % (auto) 5.1 % (10.0-50.0); Mean Corpuscular Hemoglobin 28.5 pg (28.0-32.0); Mean Corpuscular Hgb Conc. 32.7 g/dL (32.0-36.0); Mean Corpuscular Volume 87.2 fL (80.0-100.0); Monocytes # (auto) 0.9 10 ^3/uL (0-1.3); Monocytes % (auto) 6.2 % (0.0-12.0); Neutrophils # (auto) 13.6 10 ^3/uL (1.6-8.6); Neutrophils % (auto) 88.6 % (37.0-80.0); Red Blood Cells 2.98 10^6/uL (4.5-5.90); Red Cell Distribution Width 15.6 % (11.8-14.3); White Blood Cell 15.4 10^3/uL (4.4-10.8)
[2023-01-21] MEDS: SODIUM CHLORIDE 0.9% 1,000 ML IV SCH (08:43)
[2023-01-21] MEDS: PANTOPRAZOLE 40 MG/10 ML VIAL INJ IV SCH ×2 (08:43→21:56)
[2023-01-21] MEDS ORDERED: POTASSIUM EFFERVESENT TAB 25 MEQ PO ONE (13:30)
[2023-01-21 14:37] LABS: Chloride 115 mmol/L (98-107); Sodium 148 mmol/L (136-145)
[2023-01-21 14:38] LABS: Anion Gap 14 (5-15); Calcium 8.2 mg/dL (8.5-10.1); Carbon Dioxide 19 mmol/L (20-30)
[2023-01-21] MEDS: SOD CHL 0.45% 1,000 ML IV SCH ×2 (14:40→23:30)
[2023-01-21 14:43] LABS: Blood Urea Nitrogen 33 mg/dL (9-23)
[2023-01-21 14:49] LABS: Glucose 197 mg/dL (74-106)
[2023-01-21 14:55] LABS: Potassium 2.7 mmol/L (3.5-5.1)
[2023-01-21] MEDS: ATORVASTATIN 20 MG TAB PO SCH (21:56)
[2023-01-22] VITALS (7 sets, daily range): BP systolic 80–106; BP diastolic 48–57; PULSE 73–86; RESP 12–19; TEMP 97.7–99; O2SAT 97–99
[2023-01-22] MEDS: PIPERACILLIN-TAZOB 3.375GM 100 ML IV SCH ×3 (04:10→20:43)
[2023-01-22] MEDS: ACCU-CHEK COMFORT CURVE STRIP VI SCH ×4 (05:59→21:11)
[2023-01-22] MEDS: InsuLIN REG 1unit/0.01ml Soln (100units/ml) SC SCH ×4 (06:00→21:36)
[2023-01-22 07:19] LABS: Basophils # (auto) 0 10 ^3/uL (0-0.2); Eosinophils # (auto) 0.1 10 ^3/uL (0-0.8); Hemoglobin 7.7 g/dL (13.5-17.5); Lymphocytes % (auto) 7.5 % (10.0-50.0); Neutrophils # (auto) 11.1 10 ^3/uL (1.6-8.6); White Blood Cell 12.8 10^3/uL (4.4-10.8)
[2023-01-22 07:22] LABS: Eosinophils % (auto) 0.4 % (0.0-7.0); Mean Corpuscular Hemoglobin 28.6 pg (28.0-32.0); Mean Corpuscular Hgb Conc. 33.5 g/dL (32.0-36.0); Mean Corpuscular Volume 85.4 fL (80.0-100.0); Monocytes # (auto) 0.6 10 ^3/uL (0-1.3); Neutrophils % (auto) 87.1 % (37.0-80.0); Red Blood Cells 2.69 10^6/uL (4.5-5.90)
[2023-01-22 08:10] LABS: Anion Gap 10 (5-15); Carbon Dioxide 23 mmol/L (20-30); Chloride 114 mmol/L (98-107); Sodium 147 mmol/L (136-145)
[2023-01-22 08:16] LABS: Blood Urea Nitrogen 19 mg/dL (9-23); Glucose 152 mg/dL (74-106)
[2023-01-22 08:20] LABS: Calcium 7.9 mg/dL (8.5-10.1)
[2023-01-22] MEDS: SOD CHL 0.45% 1,000 ML IV SCH ×2 (09:30→19:30)
[2023-01-22] MEDS: POTASSIUM CHL 20MEQ/100ML 100 ML IV SCH ×3 (11:01→14:00)
[2023-01-22] MEDS: PANTOPRAZOLE 40 MG/10 ML VIAL INJ IV SCH ×2 (11:01→21:10)
[2023-01-22] MEDS: ATORVASTATIN 20 MG TAB PO SCH (21:10)
[2023-01-23] VITALS (8 sets, daily range): BP systolic 93–113; BP diastolic 54–67; PULSE 65–85; RESP 12–21; TEMP 97.7–98.8; O2SAT 97–100
[2023-01-23] MEDS: PIPERACILLIN-TAZOB 3.375GM 100 ML IV SCH ×3 (04:00→19:43)
[2023-01-23] MEDS: SOD CHL 0.45% 1,000 ML IV SCH ×2 (05:43→15:30)
[2023-01-23 06:29] LABS: Basophils # (auto) 0 10 ^3/uL (0-0.2); Basophils % (auto) 0.1 % (0.0-2.0); Eosinophils # (auto) 0.1 10 ^3/uL (0-0.8); Eosinophils % (auto) 1.2 % (0.0-7.0); Lymphocytes # (auto) 1.4 10 ^3/uL (0.4-5.4); Neutrophils # (auto) 8.8 10 ^3/uL (1.6-8.6)
[2023-01-23 06:31] LABS: Hematocrit 24.9 % (41.0-53.0); Hemoglobin 8.1 g/dL (13.5-17.5); Lymphocytes % (auto) 12.6 % (10.0-50.0); Mean Corpuscular Hemoglobin 28.2 pg (28.0-32.0); Mean Corpuscular Hgb Conc. 32.4 g/dL (32.0-36.0); Mean Corpuscular Volume 87.2 fL (80.0-100.0); Monocytes # (auto) 0.7 10 ^3/uL (0-1.3); Monocytes % (auto) 6.7 % (0.0-12.0); Neutrophils % (auto) 79.4 % (37.0-80.0); Red Blood Cells 2.86 10^6/uL (4.5-5.90); Red Cell Distribution Width 16.1 % (11.8-14.3); White Blood Cell 11.1 10^3/uL (4.4-10.8)
[2023-01-23 06:37] LABS: Chloride 114 mmol/L (98-107); Sodium 147 mmol/L (136-145)
[2023-01-23 06:38] LABS: Anion Gap 10 (5-15); Calcium 7.6 mg/dL (8.5-10.1); Carbon Dioxide 23 mmol/L (20-30)
[2023-01-23 06:43] LABS: BUN/Creatinine Ratio 26.1 (10.0-20.0); Blood Urea Nitrogen 18 mg/dL (9-23); Glucose 136 mg/dL (74-106)
[2023-01-23 06:51] LABS: Potassium 2.6 mmol/L (3.5-5.1)
[2023-01-23] MEDS: ACCU-CHEK COMFORT CURVE STRIP VI SCH ×4 (07:00→21:41)
[2023-01-23] MEDS: InsuLIN REG 1unit/0.01ml Soln (100units/ml) SC SCH ×4 (07:00→22:16)
[2023-01-23] MEDS: PANTOPRAZOLE 40 MG/10 ML VIAL INJ IV SCH ×2 (10:51→21:41)
[2023-01-23] MEDS ORDERED: POTASSIUM EFFERVESENT TAB 25 MEQ GT ONE (11:15)
[2023-01-23] MEDS ORDERED: VANCOMYCIN HCL 500MG/5ML ORAL SOL GT SCH (12:00)
[2023-01-23] MEDS: POTASSIUM CHL 20MEQ/100ML 100 ML IV SCH ×2 (13:50→16:54)
[2023-01-23] MEDS ORDERED: metroNIDAZOLE 500MG/100ML 100 ML IV ONE (16:45)
[2023-01-23] MEDS: metroNIDAZOLE 500MG/100ML 100 ML IV SCH (21:41)
[2023-01-23] MEDS: ATORVASTATIN 20 MG TAB PO SCH (21:41)
[2023-01-24] VITALS (8 sets, daily range): BP systolic 86–137; BP diastolic 54–71; PULSE 65–82; RESP 14–20; TEMP 97.9–98.4; O2SAT 90–100
[2023-01-24] MEDS: SOD CHL 0.45% 1,000 ML IV SCH ×2 (01:30→11:08)
[2023-01-24] MEDS: metroNIDAZOLE 500MG/100ML 100 ML IV SCH (03:34)
[2023-01-24] MEDS: PIPERACILLIN-TAZOB 3.375GM 100 ML IV SCH ×3 (03:56→20:17)
[2023-01-24] MEDS: metroNIDAZOLE 500 MG TAB PO SCH ×3 (06:10→22:35)
[2023-01-24] MEDS: ACCU-CHEK COMFORT CURVE STRIP VI SCH ×4 (06:11→22:35)
[2023-01-24] MEDS: InsuLIN REG 1unit/0.01ml Soln (100units/ml) SC SCH ×4 (06:19→22:37)
[2023-01-24] MEDS: FLORASTOR (S. BOULARDII) 250 MG CAP PO SCH (10:19)
[2023-01-24] MEDS: PANTOPRAZOLE 40 MG/10 ML VIAL INJ IV SCH (10:19)
[2023-01-24] MEDS ORDERED: CHOLESTYRAMINE 4 GM POWDER GT SCH (11:00)
[2023-01-24 11:49] LABS: Chloride 110 mmol/L (98-107); Sodium 139 mmol/L (136-145)
[2023-01-24 11:50] LABS: Anion Gap 7 (5-15); Calcium 7.1 mg/dL (8.5-10.1); Carbon Dioxide 22 mmol/L (20-30)
[2023-01-24 11:55] LABS: BUN/Creatinine Ratio 12.1 (10.0-20.0)
[2023-01-24 12:07] LABS: Blood Urea Nitrogen 7 mg/dL (9-23); Glucose 243 mg/dL (74-106)
[2023-01-24 12:08] LABS: Potassium 2.6 mmol/L (3.5-5.1)
[2023-01-24 12:25] LABS: Basophils # (auto) 0 10 ^3/uL (0-0.2); Basophils % (auto) 0.2 % (0.0-2.0); Eosinophils # (auto) 0.1 10 ^3/uL (0-0.8); Hematocrit 30.2 % (41.0-53.0); Hemoglobin 9.3 g/dL (13.5-17.5); Lymphocytes # (auto) 1.2 10 ^3/uL (0.4-5.4); Lymphocytes % (auto) 8.3 % (10.0-50.0); Mean Corpuscular Hemoglobin 28.1 pg (28.0-32.0); Mean Corpuscular Hgb Conc. 30.6 g/dL (32.0-36.0); Mean Corpuscular Volume 91.8 fL (80.0-100.0); Monocytes # (auto) 0.8 10 ^3/uL (0-1.3); Monocytes % (auto) 5.4 % (0.0-12.0); Neutrophils # (auto) 12.2 10 ^3/uL (1.6-8.6); Neutrophils % (auto) 85.1 % (37.0-80.0); Red Cell Distribution Width 16.4 % (11.8-14.3); White Blood Cell 14.3 10^3/uL (4.4-10.8)
[2023-01-24] MEDS ORDERED: POTASSIUM CHL 20 Meq TABLET PO ONE (12:45)
[2023-01-24] MEDS ORDERED: SOD CHL 0.45% WITH 20MEQ KCL 1,000 ML IV SCH (12:45)
[2023-01-24] MEDS: MAGNESIUM SULFATE 1GM/100ML 100 ML IV SCH ×2 (14:08→15:38)
[2023-01-24] MEDS: POTASSIUM CHLORIDE 40 MEQ in SOD CHL 0.45% 1,000 ML IV SCH (16:19)
[2023-01-24] MEDS: ATORVASTATIN 20 MG TAB PO SCH (22:35)
[2023-01-25] MEDS: POTASSIUM CHLORIDE 40 MEQ in SOD CHL 0.45% 1,000 ML IV SCH ×3 (01:27→20:28)
[2023-01-25] MEDS: PIPERACILLIN-TAZOB 3.375GM 100 ML IV SCH ×3 (03:26→20:28)
[2023-01-25 05:00] VITALS: BP 105/63; PULSE 74; RESP 22; TEMP 97.8; O2SAT 98
[2023-01-25 05:59] LABS: Anion Gap 6 (5-15); Calcium 7.3 mg/dL (8.7-10.4); Carbon Dioxide 23 mmol/L (20-30); Chloride 109 mmol/L (98-107); Potassium 3.1 mmol/L (3.5-5.1); Sodium 138 mmol/L (136-145)
[2023-01-25 06:05] LABS: Glucose 146 mg/dL (74-106)
[2023-01-25 06:06] LABS: BUN/Creatinine Ratio 16.7 (10.0-20.0); Blood Urea Nitrogen 9 mg/dL (9-23)
[2023-01-25] MEDS: metroNIDAZOLE 500 MG TAB PO SCH ×3 (06:25→21:42)
[2023-01-25] MEDS: ACCU-CHEK COMFORT CURVE STRIP VI SCH ×4 (06:25→21:42)
[2023-01-25] MEDS: InsuLIN REG 1unit/0.01ml Soln (100units/ml) SC SCH ×4 (06:30→21:43)
[2023-01-25 08:00] VITALS: PULSE 76
[2023-01-25] MEDS: FLORASTOR (S. BOULARDII) 250 MG CAP PO SCH (09:55)
[2023-01-25] MEDS: PANTOPRAZOLE 40 MG/10 ML VIAL INJ IV SCH (09:55)
[2023-01-25] MEDS: CHOLESTYRAMINE 4 GM POWDER GT SCH (11:12)
[2023-01-25 12:00] VITALS: BP 109/60; PULSE 80; RESP 18; TEMP 97.8; O2SAT 99
[2023-01-25 16:00] VITALS: BP 100/63; PULSE 77; RESP 18; TEMP 98.2; O2SAT 99
[2023-01-25 20:00] VITALS: PULSE 79; RESP 18
[2023-01-25] MEDS: ATORVASTATIN 20 MG TAB PO SCH (21:42)
[2023-01-25 22:00] VITALS: BP 101/61; PULSE 81; RESP 14; TEMP 98.1; O2SAT 99
[2023-01-26] VITALS (7 sets, daily range): BP systolic 101–123; BP diastolic 61–69; PULSE 60–87; RESP 14–20; TEMP 36.9; O2SAT 97–98
[2023-01-26] MEDS: CHOLESTYRAMINE 4 GM POWDER GT SCH ×3 (00:27→21:41)
[2023-01-26] MEDS: PIPERACILLIN-TAZOB 3.375GM 100 ML IV SCH ×3 (04:10→21:40)
[2023-01-26] MEDS: metroNIDAZOLE 500 MG TAB PO SCH ×3 (06:21→21:40)
[2023-01-26] MEDS: InsuLIN REG 1unit/0.01ml Soln (100units/ml) SC SCH ×4 (06:21→21:40)
[2023-01-26] MEDS: ACCU-CHEK COMFORT CURVE STRIP VI SCH ×4 (06:21→21:41)
[2023-01-26] MEDS: POTASSIUM CHLORIDE 40 MEQ in SOD CHL 0.45% 1,000 ML IV SCH ×2 (06:26→17:26)
[2023-01-26 09:25] LABS: Creatinine, Urine 16.66 mg/dL (30.0-125.0)
[2023-01-26] MEDS: PANTOPRAZOLE 40 MG/10 ML VIAL INJ IV SCH (09:43)
[2023-01-26] MEDS: FLORASTOR (S. BOULARDII) 250 MG CAP PO SCH (09:43)
[2023-01-26 13:05] LABS: Basophils # (auto) 0 10 ^3/uL (0-0.2); Eosinophils # (auto) 0.2 10 ^3/uL (0-0.8); Hemoglobin 9.9 g/dL (13.5-17.5); Lymphocytes # (auto) 1.3 10 ^3/uL (0.4-5.4); Monocytes % (auto) 6.5 % (0.0-12.0); Red Cell Distribution Width 16.1 % (11.8-14.3)
[2023-01-26 13:07] LABS: Basophils % (auto) 0.4 % (0.0-2.0); Eosinophils % (auto) 1.8 % (0.0-7.0); Hematocrit 31.2 % (41.0-53.0); Lymphocytes % (auto) 13.2 % (10.0-50.0); Mean Corpuscular Hemoglobin 28.7 pg (28.0-32.0); Mean Corpuscular Hgb Conc. 31.8 g/dL (32.0-36.0); Mean Corpuscular Volume 90.1 fL (80.0-100.0); Monocytes # (auto) 0.6 10 ^3/uL (0-1.3); Neutrophils # (auto) 7.7 10 ^3/uL (1.6-8.6); Neutrophils % (auto) 78.1 % (37.0-80.0); Red Blood Cells 3.46 10^6/uL (4.5-5.90); White Blood Cell 9.9 10^3/uL (4.4-10.8)
[2023-01-26 13:18] LABS: Chloride 110 mmol/L (98-107); Potassium 3.4 mmol/L (3.5-5.1); Sodium 138 mmol/L (136-145)
[2023-01-26 13:19] LABS: Anion Gap 6 (5-15); Carbon Dioxide 22 mmol/L (20-30)
[2023-01-26 13:20] LABS: Calcium 7.4 mg/dL (8.7-10.4)
[2023-01-26 13:24] LABS: Glucose 194 mg/dL (74-106)
[2023-01-26 13:25] LABS: BUN/Creatinine Ratio 10.9 (10.0-20.0); Blood Urea Nitrogen 7 mg/dL (9-23)
[2023-01-26] MEDS ORDERED: POTASSIUM EFFERVESENT TAB 25 MEQ PO ONE (17:45)
[2023-01-26] MEDS: ATORVASTATIN 20 MG TAB PO SCH (21:40)
[2023-01-27] MEDS: PIPERACILLIN-TAZOB 3.375GM 100 ML IV SCH ×2 (04:01→13:31)
[2023-01-27] MEDS: POTASSIUM CHLORIDE 40 MEQ in SOD CHL 0.45% 1,000 ML IV SCH ×2 (04:27→14:32)
[2023-01-27] MEDS: InsuLIN REG 1unit/0.01ml Soln (100units/ml) SC SCH ×3 (06:27→19:13)
[2023-01-27] MEDS: ACCU-CHEK COMFORT CURVE STRIP VI SCH ×3 (06:28→18:46)
[2023-01-27] MEDS: metroNIDAZOLE 500 MG TAB PO SCH ×2 (06:32→18:46)
[2023-01-27 06:43] LABS: Anion Gap 6 (5-15); Carbon Dioxide 26 mmol/L (20-30); Chloride 110 mmol/L (98-107); Potassium 3.6 mmol/L (3.5-5.1); Sodium 142 mmol/L (136-145)
[2023-01-27 06:44] LABS: Calcium 7.6 mg/dL (8.7-10.4)
[2023-01-27 06:49] LABS: Blood Urea Nitrogen 17 mg/dL (9-23); Glucose 102 mg/dL (74-106)
[2023-01-27 06:51] LABS: BUN/Creatinine Ratio 30.4 (10.0-20.0); Eosinophils # (auto) 0.3 10 ^3/uL (0-0.8); Eosinophils % (auto) 3.5 % (0.0-7.0); Hematocrit 27.1 % (41.0-53.0); Hemoglobin 9.1 g/dL (13.5-17.5); Lymphocytes # (auto) 1.3 10 ^3/uL (0.4-5.4); Mean Corpuscular Hgb Conc. 33.4 g/dL (32.0-36.0); Monocytes # (auto) 0.7 10 ^3/uL (0-1.3); Neutrophils # (auto) 5.3 10 ^3/uL (1.6-8.6)
[2023-01-27 06:55] LABS: Basophils # (auto) 0.1 10 ^3/uL (0-0.2); Basophils % (auto) 0.7 % (0.0-2.0); Lymphocytes % (auto) 17.1 % (10.0-50.0); Mean Corpuscular Hemoglobin 28.8 pg (28.0-32.0); Mean Corpuscular Volume 86.3 fL (80.0-100.0); Monocytes % (auto) 9.2 % (0.0-12.0); Neutrophils % (auto) 69.5 % (37.0-80.0); Red Blood Cells 3.14 10^6/uL (4.5-5.90); Red Cell Distribution Width 16.3 % (11.8-14.3); White Blood Cell 7.7 10^3/uL (4.4-10.8)
[2023-01-27 07:35] VITALS: BP 90/50; PULSE 91; RESP 17; TEMP 98.4; O2SAT 97
[2023-01-27 08:00] VITALS: PULSE 85; PULSE 90; RESP 18; TEMP 36.9
[2023-01-27 09:00] VITALS: BP 86/51; PULSE 95; RESP 17; TEMP 98.3; O2SAT 97
[2023-01-27] MEDS: CHOLESTYRAMINE 4 GM POWDER GT SCH (10:36)
[2023-01-27] MEDS: PANTOPRAZOLE 40 MG/10 ML VIAL INJ IV SCH (10:36)
[2023-01-27 13:00] VITALS: BP 118/70; PULSE 90; RESP 18; TEMP 98.8; O2SAT 91
[2023-01-27] MEDS ORDERED: MET500T PO (13:55)
[2023-01-27] MEDS ORDERED: ATOR20TA50 PO (13:55)
[2023-01-27] MEDS ORDERED: CHL4PW GT (14:27)
[2023-01-27] MEDS ORDERED: SACC250C PO (14:27)
[2023-01-27] MEDS: FLORASTOR (S. BOULARDII) 250 MG CAP PO SCH (15:13)
[2023-01-27 16:51] VITALS: BP 93/58; PULSE 86; RESP 17; TEMP 98.6; O2SAT 99
[2023-01-27 17:53] VITALS: BP 118/70; PULSE 90; RESP 18; TEMP 98.8; O2SAT 92
== END 2023-01-27 22:00 | disposition home or self-care (01) | DRG 720 ==
LOC: EDSEX 10:50 → EDBD 10:50 → ER 10:50 → TELE 17:02 → ICU WEST 19:45 → WEST WING 01-20 15:45 → TELE-WESTW 01-20 17:13
PROVIDERS: ADMIT Nurse Practitioner Family; ATTEND Internal Medicine Pulmonary Disease
PROC: 30233N1 Transfusion of Nonautologous Red Blood Cells into Peripheral Vein, Percutaneous Approach (ICD-10-PCS; 2023-01-19)
PROC: 30233K1 Transfusion of Nonautologous Frozen Plasma into Peripheral Vein, Percutaneous Approach (ICD-10-PCS; principal; 2023-01-20)
DX: A41.89 Other specified sepsis (principal); I21.4 Non-ST elevation (NSTEMI) myocardial infarction; J69.0 Pneumonitis due to inhalation of food and vomit; R65.21 Severe sepsis with septic shock; R57.1 Hypovolemic shock; A04.72 Enterocolitis due to Clostridium difficile, not specified as recurrent; J15.69 Pneumonia due to other Gram-negative bacteria; E87.20 Acidosis, unspecified; S72.145A Nondisplaced intertrochanteric fracture of left femur, initial encounter for closed fracture; D62 Acute posthemorrhagic anemia; E86.0 Dehydration; N17.9 Acute kidney failure, unspecified; D64.9 Anemia, unspecified; E11.22 Type 2 diabetes mellitus with diabetic chronic kidney disease; K52.9 Noninfective gastroenteritis and colitis, unspecified; E11.65 Type 2 diabetes mellitus with hyperglycemia; E78.5 Hyperlipidemia, unspecified; E87.6 Hypokalemia; I73.9 Peripheral vascular disease, unspecified; J98.11 Atelectasis; K56.41 Fecal impaction; N18.9 Chronic kidney disease, unspecified; I12.9 Hypertensive chronic kidney disease with stage 1 through stage 4 chronic kidney disease, or unspecified chronic kidney disease; E11.51 Type 2 diabetes mellitus with diabetic peripheral angiopathy without gangrene; J15.9 Unspecified bacterial pneumonia; W06.XXXA Fall from bed, initial encounter; Y92.003 Bedroom of unspecified non-institutional (private) residence as the place of occurrence of the external cause; Z89.512 Acquired absence of left leg below knee; Z89.511 Acquired absence of right leg below knee; I25.2 Old myocardial infarction; Z88.1 Allergy status to other antibiotic agents; Z83.3 Family history of diabetes mellitus; Z80.0 Family history of malignant neoplasm of digestive organs; Y99.8 Other external cause status; Z88.8 Allergy status to other drugs, medicaments and biological substances
CPT/HCPCS: 36415; 36600; 71045; 73502; 74176; 80048; 80053; 81001; 82010; 82570; 82805; 82962; 83036; 83605; 83735; 83880; 83930; 84132; 84156; 84300; 84443; 84484; 85007; 85014; 85018; 85025; 85027; 85610; 85652; 85730; 86141; 86850; 86900; 86901; 86920; 87040; 87081; 87086; 87493; 93005; 93306; 96365; 96375; 99291; C9113; G0378; J1815; J2405; J2543; J3480; J3490; P9047